=== PATIENT | female | born 1945 | race Caucasian/White ===

== ENCOUNTER 2021-07-05 09:06 | Outpatient (REF) | payer MEDICARE, SELFPAY ==
--- NOTE | ~2021-07-05 | CT_ITS ---
EXAMINATION: CT CHEST WITHOUT CONTRAST CLINICAL INFORMATION: Interstitial lung disease. COMPARISON: Previous chest CT scans April 2019 and March 2020. TECHNIQUE: Multidetector volumetric CT imaging of the chest was done. Axial MIP volume rendering provided. Sagittal and coronal reformatted images were obtained. This CT examination was performed using dose optimization techniques as appropriate, variously including the following: *Automated exposure control. *Adjustment of mA and/or kV according to patient size (this includes techniques or standardized protocols for targeted exams where dose is matched to indication/reason for exam; i.e. extremities or head). *Use of iterative reconstruction technique. DLP: 81 mGy-cm FINDINGS: LUNGS: The lungs are well inflated. There is mild diffuse cylindrical bronchiectasis. There is bronchial wall thickening, bronchial soft tissue opacification/mucus plugging and peribronchial nodules and nodular opacities seen in the bilateral lower lobes, right middle lobe, inferior segment of the lingula and anterior and posterior segment of the right upper lobe. This is greatest in the right middle lobe and left lower lobe. This does not appear appreciably changed from March 2020. Largest pulmonary nodule measures 0.8 x 1.2 cm in the right lower lobe, axial image 147 series 6, and is unchanged. Previously identified irregularly-shaped larger area of consolidation in the posterior costophrenic sulcus of the right lower lobe on March 2020 exam appear improved. MEDIASTINUM: The heart does not appear enlarged. There is very mild coronary artery calcification. There is a trace stable pericardial effusion. There are small mediastinal lymph nodes that are stable. The thoracic aorta is normal in caliber. PLEURA: There is mild biapical pleural calcification. There is no pleural effusion. AXILLA: No lymphadenopathy. UPPER ABDOMEN: Unremarkable. OSSEOUS STRUCTURES: There are mild degenerative changes of the spine. CT/CT chest wo con IMPRESSION: Stable bronchiectasis, bronchial wall thickening and mucus plugging from previous exam. There is interval resolution of the right lower lobe consolidation compared to March 2020 exam. Fleischner guidelines were followed.
== END 2021-07-05 09:07 | disposition home or self-care (01) ==
LOC: HO.CT 09:06
PROVIDERS: Visit Provider Internal Medicine
DX: J84.9 Interstitial pulmonary disease, unspecified (principal)
CPT/HCPCS: 71250

== ENCOUNTER 2024-12-06 13:33 | Outpatient (AMB) | payer MEDICARE, SELFPAY ==
--- NOTE | 2024-12-06 13:52 | A.OFFVIS_ITS ---
Vital Signs 3 12/06/24 14:07 12/06/24 14:13 Pulse 81 81 Pulse Source Pulse Oximeter Pulse Oximeter Pulse Oximetry (%) 96 96 Oxygen Delivery Method Room Air Room Air Intake Visit Reasons: [place] Pod/Foot Ulcer Allergies azithromycin Allergy (Unknown, Verified 12/06/24 14:09) Unknown Penicillins Allergy (Unknown, Verified 12/06/24 14:09) Unknown biaxin Allergy (Unknown, Uncoded 12/06/24 14:09) uknown erythromy Allergy (Unknown, Uncoded 12/06/24 14:09) Unknown HPI Comments Details: She is referral for right second toe redness. She has nonhealing ulcer and Pseudomonas on 09/17/2024. She is seeing [facility]. [facility] Medical History (Updated 12/06/24 @ 14:47 by Caroline Linares MD) Foot ulcer Review of Systems Const All systems reviewed & are unremarkable except as noted in HPI and below Physical Exam Vital Signs: Last Vital Signs Pulse 81 12/06/24 14:13 Pulse Ox 96 12/06/24 14:13 Oxygen Delivery Method Room Air 12/06/24 14:13 Const Other: General: cooperative Orientation/consciousness: patient oriented x3 HEENT Head: Yes normal to inspection Mouth: Normal oral and palatal mucosa present Eyes General: appearance normal, both eyes and all related structures Pupils: Equal, round and reactive pupils present Resp Effort & Inspection: normal respiratory effort Cardio Rate: regular rate Rhythm: regular rhythm GI Palpation (GI): Soft to palpation and nontender General: Yes no CVA tenderness Back/Spine/Pelvis Back: no CVA tenderness Skin General skin exam: no rashes or lesions noted Neuro General: patient oriented x3 Cranial nerves: Yes CN's II-XII intact bilaterally and Yes Equal, round and reactive pupils present Extrem General: Yes normal to inspection Psych Appearance: grossly normal Assessment & Plan Assessment & Plan (1) Foot ulcer: Comment: She has had Pseudomonas Code(s): L97.509 - Non-pressure chronic ulcer of other part of unspecified foot with unspecified severity Category: Medical Plan Po Levaquin if able,probably four weeks Check XR again evaluate OM. See if needed. Coding Level of Care Code New Pt Level 3 (82839) Diagnoses Foot ulcer L97.509
[2024-12-06 14:07] VITALS: PULSE 81; O2SAT 96
[2024-12-06 14:13] VITALS: PULSE 81; O2SAT 96
--- OUTSIDE RECORDS SUMMARY | 2024-12-06 14:52 | XMS_ITS ---
Author Organization [facility] Address [address] [place] [id number] Care Team Providers Care Air Quality Chemist Name Role Phone Raymond Fernandes Primary Care Provider Vandana Gill [phone] REASON FOR VISIT auto immune dx Encounters Encounter Location Date Provider Diagnosis [address] [id number] 11/24/2024 Vandana Ramirez Plan Of Treatment Next Appt Details Provider Name:Vandana dykes, 12/15/2024 12:00:00 PM, [address] [place] [address], [phone], Provider Name:Vandana dykes, 12/26/2024 03:45:00 PM, [address] [place] [address], [phone], Progress Notes * Tomasa JE[birth year]DOB:[birth year] (78 yo F)Acc No.[id number]:11/24/2024 Patient:?Tomasa JEWELL :1945???Age:78 Y???Sex:Female Address:[facility] [address] * true * Date:? Generated for Printi ng/Faxing/eTransmitting on:?12/06/2024 02:52 PM EDT
--- OUTSIDE RECORDS SUMMARY | 2024-12-06 14:52 | XMS_ITS | Data Portability ---
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 Garrett for osteoporosis, status post reclast once 06/04/16. 08/17/19 DXA revealed L2:4 t-score -0.5, left femoral neck t-score -2.9, z-score -0.6, (vs. t-score -2.7 and z-score-0.6 in 2017, decrease in bmd of 4%), mean total t-score -2.9 (vs. -2.8 in 2017), distal 1/3 radius t-score -2.4, no change from 2017. Bone density testing shows osteoporosis and stable bone density since 2017. 03/01/16 urine calcium 125mg/24h, urine cr 1.1g/24h, 01/24/16 creatinine 1.1mg/dL, glc 70mg/dL, calcium 8.8mg/dL, phos 2.7mg/dL, mg 2.1mg/dL, tsh 0.8, pth 27pg/mL, 25-oh vitamin d 87ng/mL, borrelia burgdorferi ab 0.2 (ref <0.9). 01/24/16 radiograph cervical thoracic and lumbar-spine noted reverse lordosis and degenerative changes (osteophyte, narrowed disc space, sponylolisthesis of L3), but no fracture. I spent a total of 13 minutes with the patient, over half of which was spent counseling the patient on treatment and monitoring of osteoporosis. We reviewed the option of reclast, and she would like to remain off for now. I suggest repeating a bmd test in 2y and will touch base in a year. Patient agreed to this visit via phone or secure telehealth platform due to the COVID -19 pandemic. Patient understands this is a scheduled visit and the usual procedures with regard to billing and confidentiality apply. Patient was notified that the provider location is home Patient location: home During the visit the patient? s medical history and medical record were reviewed. The patient was notified to call our office for worsening or urgent symptoms. [email or web address] Not available 01/04/2020 10:05:10 01/23/2021 01/23/2021 75yo woman, with a history of GERD, improved by tums, hypertension, bronchiectasis, underweight, early menopause, perhaps age 39 years, on estrogen and progesterone until age 59 years, and osteoporosis kindly referred by Dr. Garrett for osteoporosis, status post reclast once 06/04/16. 08/17/19 DXA revealed L2:4 t-score -0.5, left femoral neck t-score -2.9, z-score -0.6, (vs. t-score -2.7 and z-score-0.6 in 2017, decrease in bmd of 4%), mean total t-score -2.9 (vs. -2.8 in 2017), distal 1/3 radius t-score -2.4, no change from 2017. Bone density testing shows osteoporosis and stable bone density since 2017. 12/06/20 ast 39 (ref 0, 37), 25oh vit d 56, ca 9.1, cr 0.8, 03/01/16 urine calcium 125mg/24h, urine cr 1.1g/24h, 01/24/16 creatinine 1.1mg/dL, glc 70mg/dL, calcium 8.8mg/dL, phos 2.7mg/dL, mg 2.1mg/dL, tsh 0.8, pth 27pg/mL, 25-oh vitamin d 87ng/mL, borrelia burgdorferi ab 0.2 (ref <0.9). 01/24/16 radiograph cervical thoracic and lumbar-spine noted reverse lordosis and degenerative changes (osteophyte, narrowed disc space, sponylolisthesis of L3), but no fracture. Mildly high liver test. Blood count is overall normal. Calcium and kidney function are normal. It is challenging to compare bone density over of time in reference to the reclast treatment because past treatment of reclast was given 1 y after DXA baseline. She had put off additional reclast in the past due to concerns about being present for her . We discussed options, and she would like to reassess DXA in 08/23 and consider a repeat treatment thereafter. [email or web address] Not available 01/23/2021 10:47:45 08/28/2021 08/28/2021 75yo woman, with a history of dysphagia with solid food, vasculitis (granulomatosis with polyangiitis), on prednisone since 07/22, GERD, improved by tums, hypertension, bronchiectasis, underweight, early menopause, perhaps age 39 years, on estrogen and progesterone until age 59 years, and osteoporosis kindly referred by Dr. Garrett for osteoporosis, status post reclast once 06/04/16. 08/17/19 DXA revealed L2:4 t-score -0.5, left femoral neck t-score -2.9, z-score -0.6, (vs. t-score -2.7 and z-score-0.6 in 2017, decrease in bmd of 4%), mean total t-score -2.9 (vs. -2.8 in 2017), distal 1/3 radius t-score -2.4, no change from 2017. Bone density testing shows osteoporosis and stable bone density since 2017. 08/20/21 cr 0.7, ca 9.6, albumin 4.1, 12/06/20 ast 39 (ref 0, 37), 25oh vit d 56, ca 9.1, cr 0.8, 03/01/16 urine calcium 125mg/24h, urine cr 1.1g/24h, 01/24/16 creatinine 1.1mg/dL, glc 70mg/dL, calcium 8.8mg/dL, phos 2.7mg/dL, mg 2.1mg/dL, tsh 0.8, pth 27pg/mL, 25-oh vitamin d 87ng/mL, borrelia burgdorferi ab 0.2 (ref <0.9). 01/24/16 radiograph cervical thoracic and lumbar-spine noted reverse lordosis and degenerative changes (osteophyte, narrowed disc space, sponylolisthesis of L3), but no fracture. Mildly high liver test. Blood count is overall normal. Calcium and kidney function are normal. Due to dysphagia, GERD, use of prednisone, and past tolerability of reclast, I suggest restarting reclast. We will get repeat labs and try to get DXA before repeating reclast if possible. [email or web address] Not available 08/28/2021 10:54:42 12/03/2022 12/03/2022 76yo woman, with a history of dysphagia with solid food, vasculitis (granulomatosis with polyangiitis), on prednisone since 07/22, GERD, improved by tums, hypertension, bronchiectasis, underweight, early menopause, perhaps age 39 years, on estrogen and progesterone until age 59 years, and osteoporosis kindly referred by Dr. Amezcua for osteoporosis, status post reclast once 06/04/16 and 09/30/21. 11/17/22 L1:4 t-score -1.7, significant decrease of lumbar spine bmd 5.1%, left femoral neck t-score -3, left total hip t-score -3.2, which is consistent with worsening osteoporosis. 08/17/19 DXA revealed L2:4 t-score -0.5, left femoral neck t-score -2.9, z-score -0.6, (vs. t-score -2.7 and z-score-0.6 in 2017, decrease in bmd of 4%), mean total t-score -2.9 (vs. -2.8 in 2017), distal 1/3 radius t-score -2.4, no change from 2017. Bone density testing shows osteoporosis and stable bone density since 2017. 10/15/22 cr 0.8, ca 9.2, alk phos 72, 08/29/21 pth 44, esr 10, tsh 1.6, cr 0.8, ca 9.1, crp 12.3, 25oh vit d 64, 08/20/21 cr 0.7, ca 9.6, albumin 4.1, 12/06/20 ast 39 (ref 0, 37), 25oh vit d 56, ca 9.1, cr 0.8, 03/01/16 urine calcium 125mg/24h, urine cr 1.1g/24h, 01/24/16 creatinine 1.1mg/dL, glc 70mg/dL, calcium 8.8mg/dL, phos 2.7mg/dL, mg 2.1mg/dL, tsh 0.8, pth 27pg/mL, 25-oh vitamin d 87ng/mL, borrelia burgdorferi ab 0.2 (ref <0.9). 01/24/16 radiograph cervical thoracic and lumbar-spine noted reverse lordosis and degenerative changes (osteophyte, narrowed disc space, sponylolisthesis of L3), but no fracture. High white blood cells may be due to inflammation. High vitamin d. I suggest reducing vitamin d supplementation from 1000 to 400units by mouth once daily. Calcium and kidney function is normal. She is now on prednisone 1mg daily. Unfortunately, zoledronic acid recently associated with worsening osteoporosis. Due to dysphagia, GERD, use of prednisone, I would favor prolia or tymlos. She declines another medicine at this time due to polypharmacy and concern about AE of these meds. She will review this with you in the future and return to see me as needed. [email or web address] Not available 12/03/2022 10:58:21 Plan of Treatment Reminders Order Date Submit Date Provider Last Modified By Organization Details Last Modified Time Details Appointments None recorded. Lab vitamin D, 25-hydroxy, total, serum 2021 022 [facility], [address] [place] [address] [place], [address], 2 14:25:17 renal function panel, serum 2021 022 [facility], [address] [place] [address] [place], [address], 3 16:05:49 PTH (parathyroi d hormone), intact, serum or plasma 2021 022 [facility], [address] [place] [address] [place], [address], 14:08:31 TSH, serum or plasma 2021 [facility], [address] [place], [address], 13:51:14 Referral None recorded. Procedures None recorded. Surgeries None recorded. Imaging DEXA 2021 [email or web address] [facility], [address] [place], [address], 12:03:17 bone density - due [id number] scharette [address] [place] [address] (Imaging), [address] [place], [address], 14:06:16 Medication Orders zoledronic acid 5 mg/100 mL in mannitol 5 %-water intravenous piggybck 2021 cosme [id number], [address] [facility], [place], [address], 15:20:13 Reclast 5 mg/100 mL intravenous piggyback 2021 ITZEL [facility] [id number] ([facility]), [address], [place], [id number], 10:48:57 Patient TargetsNo targets recorded. Patient Instructions Encounter Date Encounter Id Patient Instructions Last Modified By Organization Details Last Modified Time 01/04/2020 [id number] -labs 1y with follow up thereafter [address]y with Dr[address] Ruben aguiar Not available 01/04/2020 10:01:44 01/23/2021 [id number] -follow up August or September 2021 to review bone density cosme Not available 01/23/2021 10:44:40 Reason for Referral None Reported. Results Created Date Observation Date Name Description Value Unit Range Abnormal Flag Note LastModifiedBy Organization Detail LastModifiedTime 12/07/19 21 12/06/2020 CBC w/ auto diff WBC 6.99 K/uL 4.00-1 1.00 Not Available [facility] (Outpatient) [address] [place], [address], 12/06/2020 13:35:57 12/07/19 21 12/06/2020 CBC w/ auto diff RBC 4.07 M/uL 3.72-5 .30 Not Available [facility] (Outpatient) [address] [place], [address], 12/06/2020 13:35:57 12/07/19 21 12/06/2020 CBC w/ auto diff HGB 12.6 g/dL 11.4-1 5.9 Not Available [facility] (Outpatient) [address] [place], [address], 12/06/2020 13:35:57 12/07/19 21 12/06/2020 CBC w/ auto diff HCT 38.9 % 34.2-4 6.8 Not Available [facility] (Outpatient) [address] [place], [address], 12/06/2020 13:35:57 12/07/19 21 12/06/2020 CBC w/ auto diff plt 259 K/uL 140-43 0 Not Available [facility] (Outpatient) [address] [place], [address], 12/06/2020 13:35:57 12/07/19 21 12/06/2020 CBC w/ auto diff MCV 95.6 fL 78.0-9 7.0 Not Available [facility] (Outpatient) [address] [place], [address], 12/06/2020 13:35:57 12/07/19 21 12/06/2020 CBC w/ auto diff MCH 31.0 pg 25.0-3 3.0 Not Available [facility] (Outpatient) [address] [place] [address], [address], 12/06/2020 13:35:57 12/07/19 21 12/06/2020 CBC w/ auto diff MCHC 32.4 g/dL 32.0-3 6.0 Not Available [facility] (Outpatient) [address] [place] [address], [address], 12/06/2020 13:35:57 12/07/19 21 12/06/2020 CBC w/ auto diff RDW 12.6 % 11.0-1 6.0 Not Available [facility] (Outpatient) [address] [place] [address], [address], 12/06/2020 13:35:57 12/07/19 21 12/06/2020 CBC w/ auto diff MPV 9.7 fL 8.4-12 .8 Not Available [facility] (Outpatient) [address] [place] [address], [address], 12/06/2020 13:35:57 12/07/19 21 12/06/2020 CBC w/ auto diff NRBC 0.00 /100_ WBCs 0 Not Available [facility] (Outpatient) [address] [place] [address], [address], 12/06/2020 13:35:57 12/07/19 21 12/06/2020 CBC w/ auto diff absolute NRBC 0.00 K/uL 0 Not Available [facility] (Outpatient) [address] [place] [address], [address], 12/06/2020 13:35:57 12/07/19 21 12/06/2020 CBC w/ auto diff diff method Auto Not Available [facility] (Outpatient) [address] [place] [address], [address], 12/06/2020 13:35:57 12/07/19 21 12/06/2020 CBC w/ auto diff neuts 69.2 % 43.0-7 5.0 Not Available [facility] (Outpatient) [address] [place], [address], 12/06/2020 13:35:57 12/07/19 21 12/06/2020 CBC w/ auto diff lymphs 16.5 % 18.2-4 7.4 low Not Available [facility] (Outpatient) [address] [place], [address], 12/06/2020 13:35:57 12/07/19 21 12/06/2020 CBC w/ auto diff monos 9.6 % 4.00-1 1.00 Not Available [facility] (Outpatient) [address] [place], [address], 12/06/2020 13:35:57 12/07/19 21 12/06/2020 CBC w/ auto diff eos 3.3 % 0.0-8. 0 Not Available [facility] (Outpatient) [address] [place], [address], 12/06/2020 13:35:57 12/07/19 21 12/06/2020 CBC w/ auto diff basos 1.1 % 0.0-2. 0 Not Available [facility] (Outpatient) [address] [place], [address], 12/06/2020 13:35:57 12/07/19 21 12/06/2020 CBC w/ auto diff granulocytes , immature (%) 0.3 % 0.0-0. 9 Not Available [facility] (Outpatient) [address] [place], [address], 12/06/2020 13:35:57 12/07/19 21 12/06/2020 CBC w/ auto diff absolute neuts 4.84 K/uL 1.80-7 .70 Not Available [facility] (Outpatient) [address] [place], [address], 12/06/2020 13:35:57 12/07/19 21 12/06/2020 CBC w/ auto diff absolute lymphs 1.15 K/uL 1.00-3 .10 Not Available [facility] (Outpatient) [address] [place], [address], 12/06/2020 13:35:57 12/07/19 21 12/06/2020 CBC w/ auto diff absolute monos 0.67 K/uL 0.20-0 .80 Not Available [facility] (Outpatient) [address] [place], [address], 12/06/2020 13:35:57 12/07/19 21 12/06/2020 CBC w/ auto diff absolute eos 0.23 K/uL 0.00-0 .80 Not Available [facility] (Outpatient) [address] [place], [address], 12/06/2020 13:35:57 12/07/19 21 12/06/2020 CBC w/ auto diff absolute basos 0.08 K/uL 0.00-0 .09 Not Available [facility] (Outpatient) [address] [place] [address], [address], 12/06/2020 13:35:57 12/07/19 21 12/06/2020 CBC w/ auto diff granulocytes , immature 0.02 K/uL 0.00-0 .05 Not Available [facility] (Outpatient) [address] [place] [address], [address], 12/06/2020 13:35:57 12/07/19 21 12/06/2020 vitam in D, 25-hy droxy , total , serum 25 oh vit D (total) 56 NG/mL -60 Not Available [facility] (Outpatient) [address] [place], [address], 12/06/2020 14:14:14 12/07/19 21 12/06/2020 CMP, serum or plasm a sodium 140 mmol/ L 133-14 6 Not Available [facility] (Outpatient) [address] [place], [address], 12/06/2020 14:44:25 12/07/19 21 12/06/2020 CMP, serum or plasm a potassium 4.0 mmol/ L 3.3-5. 1 Not Available [facility] (Outpatient) [address] [place], [address], 12/06/2020 14:44:25 12/07/19 21 12/06/2020 CMP, serum or plasm a chloride 103 mmol/ L 96-108 Not Available [facility] (Outpatient) [address] [place], [address], 12/06/2020 14:44:25 12/07/19 21 12/06/2020 CMP, serum or plasm a CO2 28 mmol/ L 21-35 Not Available [facility] (Outpatient) [address] [place], [address], 12/06/2020 14:44:25 12/07/19 21 12/06/2020 CMP, serum or plasm a BUN 16 mg/dL 6-19 Not Available [facility] (Outpatient) [address] [place], [address], 12/06/2020 14:44:25 12/07/19 21 12/06/2020 CMP, serum or plasm a creatinine 0.80 mg/dL 0.5-1. 5 Not Available [facility] (Outpatient) [address] [place], [address], 12/06/2020 14:44:25 12/07/19 21 12/06/2020 CMP, serum or plasm a glucose 83 mg/dL 70-99 Not Available [facility] (Outpatient) [address] [place], [address], 12/06/2020 14:44:25 12/07/19 21 12/06/2020 CMP, serum or plasm a albumin 3.5 g/dL 3.9-4. 8 low Not Available [facility] (Outpatient) [address] [place] [address], [address], 12/06/2020 14:44:25 12/07/19 21 12/06/2020 CMP, serum or plasm a total protein 6.7 g/dL 6.5-8. 0 Not Available [facility] (Outpatient) [address] [place], [address], 12/06/2020 14:44:25 12/07/19 21 12/06/2020 CMP, serum or plasm a calcium 9.1 mg/dL 8.4-10 .3 Not Available [facility] (Outpatient) [address] [place], [address], 12/06/2020 14:44:25 12/07/19 21 12/06/2020 CMP, serum or plasm a alkaline phosphatase 74 U/L 39-117 Not Available [facility] (Outpatient) [address] [place], [address], 12/06/2020 14:44:25 12/07/19 21 12/06/2020 CMP, serum or plasm a total bilirubin 0.6 mg/dL 0.0-1. 2 Not Available [facility] (Outpatient) [address] [place], [address], 12/06/2020 14:44:25 12/07/19 21 12/06/2020 CMP, serum or plasm a AST 39 U/L 0-37 high Not Available [facility] (Outpatient) [address] [place], [address], 12/06/2020 14:44:25 12/07/19 21 12/06/2020 CMP, serum or plasm a ALT 25 U/L 0-40 Not Available [facility] (Outpatient) [address] [place], [address], 12/06/2020 14:44:25 12/07/19 21 12/06/2020 CMP, serum or plasm a globulin 3.2 g/dL 1-4.8 Not Available [facility] (Outpatient) [address] [place], [address], 12/06/2020 14:44:25 12/07/19 21 12/06/2020 CMP, serum or plasm a eGFR 72 mL/mi n/1.7 3m2 >59 Estim ated glome rular filtr ation rate calcu lated using the CKD-E PI equat ion. Not Available [facility] (Outpatient) [address] [place], [address], 12/06/2020 14:44:25 12/07/19 21 12/06/2020 CMP, serum or plasm a anion gap 13 mmol/ L 10-20 Not Available [facility] (Outpatient) [address] [place], [address], 12/06/2020 14:44:25 08/29/19 22 08/29/2021 CBC AND DIFFE RENTI AL WBC 13.44 K/uL 4.00-1 1.00 high Not Available [facility] (Outpatient) [address] [place], [address], 08/29/2021 13:30:13 08/29/19 22 08/29/2021 CBC AND DIFFE RENTI AL RBC 4.41 M/uL 3.72-5 .30 Not Available [facility] (Outpatient) [address] [place], [address], 08/29/2021 13:30:13 08/29/19 22 08/29/2021 CBC AND DIFFE RENTI AL HGB 13.4 g/dL 11.4-1 5.9 Not Available [facility] (Outpatient) [address] [place], [address], 08/29/2021 13:30:13 08/29/19 22 08/29/2021 CBC AND DIFFE RENTI AL HCT 41.4 % 34.2-4 6.8 Not Available [facility] (Outpatient) [address] [place], [address], 08/29/2021 13:30:13 08/29/19 22 08/29/2021 CBC AND DIFFE RENTI AL plt 420 K/uL 140-43 0 Not Available [facility] (Outpatient) [address] [place], [address], 08/29/2021 13:30:13 08/29/19 22 08/29/2021 CBC AND DIFFE RENTI AL MCV 93.9 fL 78.0-9 7.0 Not Available [facility] (Outpatient) [address] [place], [address], 08/29/2021 13:30:13 08/29/19 22 08/29/2021 CBC AND DIFFE RENTI AL MCH 30.4 pg 25.0-3 3.0 Not Available [facility] (Outpatient) [address] [place], [address], 08/29/2021 13:30:13 08/29/19 22 08/29/2021 CBC AND DIFFE RENTI AL MCHC 32.4 g/dL 32.0-3 6.0 Not Available [facility] (Outpatient) [address] [place], [address], 08/29/2021 13:30:13 08/29/19 22 08/29/2021 CBC AND DIFFE RENTI AL RDW 17.7 % 11.0-1 6.0 high Not Available [facility] (Outpatient) [address] [place], [address], 08/29/2021 13:30:13 08/29/19 22 08/29/2021 CBC AND DIFFE RENTI AL MPV 9.0 fL 8.4-12 .8 Not Available [facility] (Outpatient) [address] [place], [address], 08/29/2021 13:30:13 08/29/19 22 08/29/2021 CBC AND DIFFE RENTI AL NRBC 0.00 /100_ WBCs 0 Not Available [facility] (Outpatient) [address] [place], [address], 08/29/2021 13:30:13 08/29/19 22 08/29/2021 CBC AND DIFFE RENTI AL absolute NRBC 0.00 K/uL 0 Not Available [facility] (Outpatient) [address] [place], [address], 08/29/2021 13:30:13 08/29/19 22 08/29/2021 CBC AND DIFFE RENTI AL diff method AUTO Not Available [facility] (Outpatient) [address] [place], [address], 08/29/2021 13:30:13 08/29/19 22 08/29/2021 CBC AND DIFFE RENTI AL neuts 78.6 % 43.0-7 5.0 high Not Available [facility] (Outpatient) [address] [place], [address], 08/29/2021 13:30:13 08/29/19 22 08/29/2021 CBC AND DIFFE RENTI AL lymphs 9.8 % 18.2-4 7.4 low Not Available [facility] (Outpatient) [address] [place], [address], 08/29/2021 13:30:13 08/29/19 22 08/29/2021 CBC AND DIFFE RENTI AL monos 8.3 % 4.00-1 1.00 Not Available [facility] (Outpatient) [address] [place], [address], 08/29/2021 13:30:13 08/29/19 22 08/29/2021 CBC AND DIFFE RENTI AL eos 1.6 % 0.0-8. 0 Not Available [facility] (Outpatient) [address] [place], [address], 08/29/2021 13:30:13 08/29/19 22 08/29/2021 CBC AND DIFFE RENTI AL basos 0.7 % 0.0-2. 0 Not Available [facility] (Outpatient) [address] [place], [address], 08/29/2021 13:30:13 08/29/19 22 08/29/2021 CBC AND DIFFE RENTI AL granulocytes , immature (%) 1.0 % 0.0-0. 9 high Not Available [facility] (Outpatient) [address] [place], [address], 08/29/2021 13:30:13 08/29/19 22 08/29/2021 CBC AND DIFFE RENTI AL absolute neuts 10.57 K/uL 1.80-7 .70 high Not Available [facility] (Outpatient) [address] [place] [address], [address], 08/29/2021 13:30:13 08/29/19 22 08/29/2021 CBC AND DIFFE RENTI AL absolute lymphs 1.32 K/uL 1.00-3 .10 Not Available [facility] (Outpatient) [address] [place] [address], [address], 08/29/2021 13:30:13 08/29/19 22 08/29/2021 CBC AND DIFFE RENTI AL absolute monos 1.11 K/uL 0.20-0 .80 high Not Available [facility] (Outpatient) [address] [place] [address], [address], 08/29/2021 13:30:13 08/29/19 22 08/29/2021 CBC AND DIFFE RENTI AL absolute eos 0.21 K/uL 0.00-0 .80 Not Available [facility] (Outpatient) [address] [place], [address], 08/29/2021 13:30:13 08/29/19 22 08/29/2021 CBC AND DIFFE RENTI AL absolute basos 0.10 K/uL 0.00-0 .09 high Not Available [facility] (Outpatient) [address] [place], [address], 08/29/2021 13:30:13 08/29/19 22 08/29/2021 CBC AND DIFFE RENTI AL granulocytes , immature 0.13 K/uL 0.00-0 .05 high Not Available [facility] (Outpatient) [address] [place], [address], 08/29/2021 13:30:13 08/29/19 22 08/29/2021 COMPR EHENS LAM METAB OLIC PANEL sodium 136 mmol/ L 133-14 6 Not Available [facility] (Outpatient) [address] [place], [address], 08/29/2021 13:51:10 08/29/19 22 08/29/2021 COMPR EHENS LAM METAB OLIC PANEL potassium 3.7 mmol/ L 3.3-5. 1 Not Available [facility] (Outpatient) [address] [place], [address], 08/29/2021 13:51:10 08/29/19 22 08/29/2021 COMPR EHENS LAM METAB OLIC PANEL chloride 96 mmol/ L 96-108 Not Available [facility] (Outpatient) [address] [place], [address], 08/29/2021 13:51:10 08/29/19 22 08/29/2021 COMPR EHENS LAM METAB OLIC PANEL CO2 30 mmol/ L 21-35 Not Available [facility] (Outpatient) [address] [place], [address], 08/29/2021 13:51:10 08/29/19 22 08/29/2021 COMPR EHENS LAM METAB OLIC PANEL BUN 23 mg/dL 6-19 high Not Available [facility] (Outpatient) [address] [place], [address], 08/29/2021 13:51:10 08/29/19 22 08/29/2021 COMPR EHENS LAM METAB OLIC PANEL creatinine 0.80 mg/dL 0.5-1. 5 Not Available [facility] (Outpatient) [address] [place], [address], 08/29/2021 13:51:10 08/29/19 22 08/29/2021 COMPR EHENS LAM METAB OLIC PANEL glucose 87 mg/dL 70-99 Not Available [facility] (Outpatient) [address] [place], [address], 08/29/2021 13:51:10 08/29/19 22 08/29/2021 COMPR EHENS LAM METAB OLIC PANEL albumin 4.1 g/dL 3.9-4. 8 Not Available [facility] (Outpatient) [address] [place], [address], 08/29/2021 13:51:10 08/29/19 22 08/29/2021 COMPR EHENS LAM METAB OLIC PANEL total protein 6.9 g/dL 6.5-8. 0 Not Available [facility] (Outpatient) [address] [place], [address], 08/29/2021 13:51:10 08/29/19 22 08/29/2021 COMPR EHENS LAM METAB OLIC PANEL calcium 9.1 mg/dL 8.4-10 .3 Not Available [facility] (Outpatient) [address] [place], [address], 08/29/2021 13:51:10 08/29/19 22 08/29/2021 COMPR EHENS LAM METAB OLIC PANEL alkaline phosphatase 81 U/L 39-117 Not Available [facility] (Outpatient) [address] [place], [address], 08/29/2021 13:51:10 08/29/19 22 08/29/2021 COMPR EHENS LAM METAB OLIC PANEL total bilirubin 0.6 mg/dL 0.0-1. 2 Not Available [facility] (Outpatient) [address] [place], [address], 08/29/2021 13:51:10 08/29/19 22 08/29/2021 COMPR EHENS LAM METAB OLIC PANEL AST 32 U/L 0-37 Not Available [facility] (Outpatient) [address] [place], [address], 08/29/2021 13:51:10 08/29/19 22 08/29/2021 COMPR EHENS LAM METAB OLIC PANEL ALT 26 U/L 0-40 Not Available [facility] (Outpatient) [address] [place], [address], 08/29/2021 13:51:10 08/29/19 22 08/29/2021 COMPR EHENS LAM METAB OLIC PANEL globulin 2.8 g/dL 1-4.8 Not Available [facility] (Outpatient) [address] [place] [address], [id number], 08/29/2021 13:51:10 08/29/19 22 08/29/2021 COMPR EHENS LAM METAB OLIC PANEL eGFR 76 mL/mi n/1.7 3m2 >59 Estim ated glome rular filtr ation rate calcu lated using the CKD-E PI refit equat ion. Not Available [facility] (Outpatient) [address] [place], [address], 08/29/2021 13:51:10 08/29/19 22 08/29/2021 COMPR EHENS LAM METAB OLIC PANEL anion gap 14 mmol/ L 10-20 Not Available [facility] (Outpatient) [address] [place], [address], 08/29/2021 13:51:10 08/29/19 22 08/29/2021 C-JAZMINE CTIVE PROTE IN C reactive protein 12.3 mg/L 0.0-4. 0 high Not Available [facility] (Outpatient) [address] [place], [address], 08/29/2021 13:51:11 08/29/19 22 08/29/2021 PHOSP HORUS phosphorus 3.7 mg/dL 2.7-4. 5 Not Available [facility] (Outpatient) [address] [place], [address], 08/29/2021 13:51:13 08/29/19 22 08/29/2021 TSH TSH 1.57 uIU/m L 0.27-4 .20 Not Available [facility] (Outpatient) [address] [place], [address], 08/29/2021 13:51:14 08/29/19 22 08/29/2021 SEDIM ENTAT ION RATE (ESR) ESR 10 mm/h 0-30 Not Available [facility] (Outpatient) [address] [place], [address], 08/29/2021 14:08:05 08/29/19 22 08/29/2021 CALVIN WYMAN (PTH) parathyroid hormone 44 pg/mL 15-65 Not Available [facility] (Outpatient) [address] [place], [address], 08/29/2021 14:08:31 08/29/19 22 08/29/2021 LIPID PANEL HDL 95 mg/dL Inter preta tion <40 mg/dL : Low HDL harrison stero l (nacho r risk facto r for CHD) Great er than or equal to 60 mg/dL : High HDL harrison stero l ( neg ative risk facto r for CHD) HDL - harrison stero l is affec micaela by a tejae r of facto rs, e.g. clau cardenas, ricardo hughes, hormo brandon, sex and age. Not Available [facility] (Outpatient) [address] [place], [address], 08/29/2021 14:09:08 08/29/19 22 08/29/2021 LIPID PANEL cholesterol 182 mg/dL 0-240 Not Available [facility] (Outpatient) [address] [place], [address], 08/29/2021 14:09:08 08/29/19 22 08/29/2021 LIPID PANEL triglyceride s 86 mg/dL 30-160 Not Available [facility] (Outpatient) [address] [place], [address], 08/29/2021 14:09:08 08/29/19 22 08/29/2021 LIPID PANEL LDL 70 mg/dL 50-129 LDL level s in terms of risk for coron arthur heart disea se: <100 mg/dL : Optim al 100-1 29 mg/dL : Near or above optim al 130-1 59 mg/dL : Borde rline high 160-1 89 mg/dL : High >190 mg/dL : Very High Not Available [facility] (Outpatient) [address] [place], [address], 08/29/2021 14:09:08 08/29/19 22 08/29/2021 LIPID PANEL cardiac risk ratio 1.9 3.3-4. 4 low Not Available [facility] (Outpatient) [address] [place], [address], 08/29/2021 14:09:08 08/29/19 22 08/29/2021 25-OH VITAM IN D 25 oh vit D (total) 64 NG/mL 30-60 high Not Available [facility] (Outpatient) [address] [place], [address], 08/29/2021 14:25:17 11/17/19 22 11/12/2021 bone densi ty Dual-E nergy X-ray Absorp tiomet ry (DXA) scan perfor med on 2. Impres deya: Based on BMD, diagno sis is consis tent with osteop orosis . Treatm ent Recomm endati ons: ?Optim ize vitami n D, calciu m, and weight -beari ng and muscle -stren gtheni ng exerci se. This patien t has osteop orosis . Treatm ent option s should be consid ered. Follow -up DXA: Consid er repeat ing this study in one to two years or as clinic ileana hinojosa. Indica tion(s ): Caucas nolan, premat ure menopa use, low body weight Clinic al Histor y: osteop orosis (remot e Reclas t therap y), height loss, fragil ity fractu re Techni segundo Qualit y: The techni segundo qualit y of the study was good. The L1 region was exclud ed due to artifa ct. Result s: Lumbar Spine The BMD measur ed in the L2-L4 region is 1.081 g/cm2. T-scor e = -1.0. Femora l Neck The BMD measur ed at the left femora l neck is 0.627 g/cm2. T-scor e = -3.0. Total Hip The BMD measur ed at the total left proxim al femur is 0.617 g/cm2. T-scor e = -3.1. 1/3 Radius The BMD measur ed at the left one-th ird radius is 0.602 g/cm2. T-scor e = -3.1. Interv al Change : This examin ation is compar ed to the techni debbie ma prior study from 0. In the interi m, there has been a signif icant decrea se of 0.053 g/cm2, or 4.7 %, at the lumbar spine. At this facili ty, the least signif icant change in BMD with 95% confid ence is 0.033 g/cm2 at the L1-L4 spine, and 0.032 g/cm2 at the total hip. Fractu re Risk: The estima micaela 10-yea r risk for a major osteop orotic fractu re is 24 % and for a hip fractu re 9.8 %. This fractu re risk estima te was calcul ated using FRAX versio n 4.0 and Caucas nolan race, postme nopaus e, second arthur osteop orosis , and fragil ity fractu re as additi onal clinic al risk factor s for fractu re. This scan was perfor med using the [employer] Primo 10 densit ometer at [facility] , [address] [place]. Read by: Lilia Cardenas on, MS, BILL PEDDLER-BC , CCD Nalini Peña nolan: Samia marin [facility] (Imaging) [address], [place], [address], 11/17/2021 14:28:27 12/02/19 23 11/17/2022 bone densi ty Dual-E nergy X-ray Absorp tiomet ry (DXA) scan perfor med on 3. Impres deya: Based on BMD, diagno sis is consis tent with osteop orosis . Treatm ent Recomm endati ons: ?Optim ize vitami n D, calciu m, and weight -beari ng and muscle -stren gtheni ng exerci se. This patien t has osteop orosis (recen t zoledr onic acid therap y). Contin ued treatm ent, or altern ate therap eutic option s, should be consid ered. Follow -up DXA: Consid er repeat ing this study in one to two years or as clinic ally miguel hinojosa. Indica tion(s ): Caucas nolan, premat ure menopa use, low body weight Clinic al Histor y: osteop orosis , height loss, fragil ity fractu res Techni segundo Qualit y: The techni segundo qualit y of the study was good and no region s of intere st were remove d. Result s: Lumbar Spine The BMD measur ed in the L1-L4 region is 0.980 g/cm2. T-scor e = -1.7. Femora l Neck The BMD measur ed at the left femora l neck is 0.622 g/cm2. T-scor e = -3.0. Total Hip The BMD measur ed at the total left proxim al femur is 0.604 g/cm2. T-scor e = -3.2. 1/3 Radius The BMD measur ed at the left one-th ird radius is 0.701 g/cm2. T-scor e = -2.0. Interv al Change : This examin ation is compar ed to the techni debbie garduno r prior study from 2. In the interi m, there has been a signif icant decrea se of 0.053 g/cm2, or 5.1 %, at the lumbar spine. At this facili ty, the least signif icant change in BMD with 95% confid ence is 0.028 g/cm2 at the L1-L4 spine and 0.038 g/cm2 at the total hip. Fractu re Risk: FRAX not calcul ated due to recent zoledr onic acid therap y. This scan was perfor med using the [employer] Primo 10 densit ometer at [facility] , [address] Read by: Lilia Cardenas on, MS, BILL PEDDLER-BC , CCD Nalini martin Physic nolan: Samia marin [email or web address] [facility] (Imaging) [address], [place], [address], 12/29/2022 09:19:29 Result Notes None recorded. Problems Name Problem SNOMED Code Status Onset Date Resolution Date Notes Provider Name and Address Organization Details Recorded Time Multiple nodules of lung 066162114 Active Christiane Greenwood RN null, [facility] 6 13:38:05 Hypertensiv e disorder 52585200 Active Christiane Greenwood RN null, [facility] 6 13:38:05 Osteoporosi s 07042677 Active Christiane Greenwood RN null, [facility] 6 13:38:05 Rhinitis 73105765 Active allergic Christiane Greenwood RN null, [facility] 6 13:38:05 Decrease in height 86784783 Active 2021 Shirley Gill LPN null, [facility] 2 08:05:52 Problem Notes None recorded. Procedures Surgical History Date Name Laterality Status Provider Name and Address Organization Details Recorded Time 2 IV Therapy completed Melanie Dennis RN [facility] 09/30/2021 10:04:35 6 IV Therapy completed Christiane Greenwood RN [facility] 06/04/2016 10:54:23 6 IV Therapy completed Christiane Greenwood RN [facility] 05/27/2016 11:15:16 3 Paring/cutg b9 hyprker les 1 completed Corazon Miranda MD [address] [place] [address], [phone], [facility] 01/03/2016 15:37:27 1 Unlisted procedure breast completed Corazon Miranda MD [address] [place] [address], [phone], [facility] 01/03/2016 15:36:50 Imaging Results Imaging Date Name Status LastModified by Organiz ation Details LastModified Time 11/12/2021 bone density completed [facility] (Imaging) [address], [place], [address], 11/17/2021 14:28:27 11/17/2022 bone density completed [email or web address] ([facility]) [address] [place], [address], 12/29/2022 09:19:29 Procedure Notes None recorded. Medical Equipment None Reported. Allergies Allergen ID Allergen Name Allergen Category Reaction Reaction Severity Criticality Documentation Date Start Date Code Code System Note Provider Name and Address Organization Details Recorded Time [id number] amoxicill in medicatio n rash Not available Not available 01/03/2016 723 RxNorm Christiane Greenwood RN null, [facility] 6 15:20:09 [id number] Levaquin medicatio n rash Not available Not available 01/03/2016 56535 2 RxNorm Christiane Greenwood RN [facility], [facility] 6 15:20:09 Medications Name Sig Start Date Stop Date Status Note LastModified by Organization Details LastModified Time thymol 4% in 70% isopropyl APPLY UNDER NAILS @ 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 KEEP NAILS SHORT. [id number] 04/14/20 19 COMPOUND ED NON STERILE active Not Available Not Available No t Available albuterol sulfate 0.63 mg/3 mL solution for nebulizat ion TAKE 3 ML BY NEBULIZA TION EVERY 6 HOURS NEEDED FOR WHEEZING OR SHORTNES S OF BREATH/D YSPNEA. active Not Available Not Available No t Available acetamino phen 325 mg tablet 650mg by mouth with IV reclast once then 650mg by mouth every 4h as needed for pain 01/23 completed Not Available Not Available Not Available prednison e 10 mg tablet Take by oral route. 04/15 completed tapering 01/03/2016 Not Available Not Available Not Available Estring 2 mg (7.5 mcg/24 hour) vaginal ring INSERT ONE RING EVERY 90 DAYS DIRECTED 04/08 completed Not Available Not Available Not Available doxycycli ne hyclate 100 mg capsule 01/23 completed Not Available Not Available Not Available cetirizin e 10 mg tablet Take 1 tablet every day by oral route. active Not Available Not Available No t Available cefpodoxi me 200 mg tablet TAKE 1 TABLET BY MOUTH 2 TIMES A DAY FOR 10 DAYS. 12/03 completed Not Available Not Available Not Available fluoroura cil 5 % topical cream active Not Available Not Available Not Available prednison e 5 mg tablet TAKE 1/2 TABLET BY MOUTH DAILY 12/03 completed Not Available Not Available Not Available amlodipin e 2.5 mg tablet TAKE 1 TABLET BY MOUTH EVERY DAY 01/23 completed Not Available Not Available Not Available amlodipin e 5 mg tablet TAKE 1 TABLET BY MOUTH EVERY DAY 01/03 completed Not Available Not Available Not Available triamcino lone acetonide 0.1 % topical cream APPLY TWICE DAILY TO AFFECTED AREAS OF ECZEMA ON ARMS, LEGS, AND BACK FOR UP TO 2 WEEKS PER MONTH active Not Available Not Available No t Available triamcino lone acetonide 0.025 % topical cream APPLY TO AFFECTED AREA 3 TIMES A DAY 01/23 completed Not Available Not Available Not Available methotrex ate sodium 2.5 mg tablet TAKE 5 TABLETS (12.5 MG TOTAL) BY MOUTH ONCE A WEEK FOR 13 DOSES. active Not Available Not Available No t Available prednison e 1 mg tablet TAKE 1 TABLET BY MOUTH EVERY DAY active Not Available Not Available No t Available doxycycli ne monohydra te 100 mg capsule TAKE 1 CAPSULE BY MOUTH TWICE A DAY FOR 10 DAYS 12/03 completed Not Available Not Available Not Available oseltamiv ir 75 mg capsule TAKE 1 CAPSULE BY MOUTH TWICE A DAY FOR 5 DAYS 12/03 completed Not Available Not Available Not Available folic acid 1 mg tablet TAKE 1 TABLET BY MOUTH EVERY DAY active Not Available Not Available No t Available mupirocin 2 % topical ointment APPLY TO AFFECTED AREA TWICE A DAY active Not Available Not Available No t Available albuterol sulfate HFA 90 mcg/actua tion aerosol inhaler INHALE 1 PUFF INTO THE LUNGS EVERY 4 HOURS NEEDED. active Not Available Not Available No t Available ipratropi um bromide 42 mcg (0.06 %) nasal spray USE 2 SPRAYS BY NASAL ROUTE 3 (THREE) TIMES A DAY active Not Available Not Available No t Available fluocinon aiyana 0.05 % topical cream APPLY TO THE AFFECTED AREA(S) BY TOPICAL ROUTE 2 TIMES PER DAY active Not Available Not Available No t Available fluticaso ne propionat e 50 mcg/actua tion nasal spray,gigi pension SPRAY 1 SPRAY BY NASAL ROUTE EVERY DAY active Not Available Not Available No t Available ipratropi um bromide 21 mcg (0.03 %) nasal spray 04/08 completed Not Available Not Available Not Available fluticaso ne propionat e 110 mcg/actua tion HFA aerosol inhaler Inhale 1 puff twice a day by inhalati on route. 01/23 completed Not Available Not Available Not Available Calcium-5 00 500 mg (as calcium carbonate 1,250 mg) tablet 500mg by mouth once daily for a month after taking reclast 2015 active pt takes this daily 01-23-21 Not Available Not Available Not Available acetylcys teine 600 mg capsule TAKE 1 CAPSULE (600 MG TOTAL) BY MOUTH 2 (TWO) TIMES A DAY. NAC, OR N ACETYLCY GALARZA IS APPROPRI ATE active Not Available Not Available No t Available zoledroni c acid 5 mg/100 mL in mannitol 5 %-water intraveno us piggybck INJECT 5MG BY IV OVER 30 MINUTES WITH NORMAL SALINE SOLUTION 0.5L BOLUS active Worsenin g BMD - appt 12/03 to discuss Not Available Not Available Not Available Yuvafem 10 mcg vaginal tablet INSERT 1 TABLET VAGINALL Y 2 TIMES A WEEK. active Not Available Not Available No t Available Paxlovid 300 mg (150 mg x 2)-100 mg tablets in a dose pack active Not Available Not Available Not Available Vitals Date Recorded Body weight Body mass index (BMI) Body height Heart rate Systolic blood pressure Diastolic blood pressure Provider Name and Address Organization Details Last Updated DateTime 1 40885.4 8 g 17.4 kg/m2 165.1 cm 64 /min 100 mm[Hg] 60 mm[Hg] Shirley Gill LPN [facility] 1 10:13:43 Date Recorded Body height Body mass index (BMI) Body weight Heart rate Systolic blood pressure Diastolic blood pressure Provider Name and Address Organization Details Last Updated DateTime 2 167.64 cm 15.3 kg/m2 02499.2 8 g 66 /min 104 mm[Hg] 70 mm[Hg] Shirley Gill LPN [facility] 2 10:22:28 Date Recorded Body weight Body mass index (BMI) Body height Heart rate Systolic blood pressure Diastolic blood pressure Provider Name and Address Organization Details Last Updated DateTime 3 90139.1 5 g 15.7 kg/m2 166.37 cm 48 /min 126 mm[Hg] 70 mm[Hg] Shirley Gill [employer] [facility] 3 10:36:25 Social History Question Answer Notes LastModified by Organizat ion Details LastModified Time Tobacco Smoking Status Former Smoker Quit 1976, Christiane Greenwood RN null, [facility] 01/03/2016 15:17:31 What Is Your Level Of Alcohol Consumption? Occasional 2 Drinks Per Week peyton Information not available 01/03/2016 Which Illicit Or Recreational Drugs Have You Used? Denies [email or web address] Information not available 01/03/2016 What Was The Date Of Your Most Recent Tobacco Screening? 04/08/2017 Information not available 02/22/2019 Sex: Unknown Functional Status None recorded. Mental Status None recorded. Family History Relationship Description Onset Age of this Age Resolved Age Notes LastModified by Organization Details LastModified Time Mother Coronary arterioscler osis Killed by brothe r with BH issues [email or web address] Not available 12/31/2015 13:38:05 Father Malignant neoplasm of lung 62 [email or web address] Not available 2015 13:38:05 Father Hypertensive disorder [email or web address] Not available 2015 13:38:05 Brother Mental disorder [email or web address] Not available 2015 13:38:05 Brother Hypertensive disorder [email or web address] Not available 2015 13:38:05 Maternal Grandmother Heart disease [email or web address] Not available 2015 13:38:05 Paternal Grandfather Depressive disorder [email or web address] Not available 2015 15:33:38 Paternal Uncle Depressive disorder [email or web address] Not available 2015 15:33:38 Notes:no osteoporosis Medical History Condition Response Allergic Rhinitis Y RESPIRATORY Y Hypertension Y Osteoporosis Y Gynecological HistoryNo gynecological history recorded. Obstetrics History GPAL:G 0 P 0 0 0 0 Immunizations Vaccine Type Date Status Note Provider Nam e and Address Organization Details Recorded Time SARS-COV-2 (COVID-19) vaccine, UNSPECIFIED 1 completed DAYRON Kauffman [facility] 01/23/2021 09:59:01 SARS-COV-2 (COVID-19) vaccine, UNSPECIFIED 1 completed DAYRON Kauffman [facility] 01/23/2021 09:59:22 COVID-19, mRNA, LNP-S, PF, 30 mcg/0.3 mL dose 1 completed DAYRON Kauffman, [facility] 08/28/2021 10:19:17 Influenza, split virus, quadrivalent, preservative 1 completed DAYRON Kauffman [facility] 08/28/2021 10:19:56 Past Encounters Encounter ID Performer Location Encounter Start Date Encounter Closed Date Diagnosis/Indication Diagnosis SNOMED-CT Code Diagnosis ICD10 Code Diagnosis Note [id number] Corazon Miranda MD [facility], [address] [address] 01/03/2016 14:51:18 01/03/2016 16:21:19 Osteoporosis 50208249 M81.0 Decrease in height 30519 005 R29.319 [id number] Corazon Miranda MD [facility], [address] [address] 04/15/2016 08:12:13 04/15/2016 09:04:34 Osteoporosis 46957422 M81.0 -blood calcium and kidney check in 3weeks -reclast by IV in 4weeks, appointmen t with endocrine treatment nurse -may take acetaminop hen prior to reclast to prevent muscle aches or fever, which sometimes occurs -increase dairy to 3 to 4 servings daily -continue marcello chi Decrease in height 82849 005 R29.965 [id number] Corazon Miranda MD [facility], [address] [address] 05/27/2016 09:58:37 05/27/2016 11:25:16 Osteoporosis 22694887 M81.0 -blood calcium and kidney check in 3weeks -reclast by IV in 4weeks, appointmen t with endocrine treatment nurse -may take acetaminop hen prior to reclast to prevent muscle aches or fever, which sometimes occurs -increase dairy to 3 to 4 servings daily -continue marcello chi [id number] Corazon Miranda MD [facility], [address] [address] 06/04/2016 10:32:22 06/04/2016 12:54:46 Osteoporosis 82942072 M81.0 -blood calcium and kidney check in 3weeks -reclast by IV in 4weeks, appointmen t with endocrine treatment nurse -may take acetaminop hen prior to reclast to prevent muscle aches or fever, which sometimes occurs -increase dairy to 3 to 4 servings daily -continue marcello chi [id number] Corazon Miranda MD [facility], [address] [address] 04/08/2017 10:16:33 04/08/2017 11:10:19 Osteoporosis 54574944 M81.0 -repeat bone density -no reclast for now -dairy to 3 to 4 servings daily -continue marcello chi Decrease in height 00525 005 R29.452 [id number] Corazon Miranda MD [facility], [address] [address] 01/04/2020 07:31:44 01/04/2020 16:48:31 Osteoporosis 10034045 M81.0 -dairy to 3 to 4 servings daily -continue marcello chi -walking Decrease in height 11525 005 R29.130 [id number] Corazon Miranda MD [facility], [address] [address] 01/23/2021 09:48:04 01/23/2021 10:45:28 Osteoporosis 53778447 M81.0 -reclast was tolerated well in the past 06/17 -repeat bone density 08/23, consider reclast thereafter if worsening bone density -dairy to 3 to 4 servings daily -consider marcello chi or other balance exercises -walking Decrease in height 51124 005 R29.064 [id number] Corazon Miranda MD [facility], [address] [address] 08/28/2021 09:49:11 08/28/2021 19:05:40 Osteoporosis 74161038 M81.0 -reclast was tolerated well in the past 06/17 -repeat bone density as soon as possible (will send to [facility] if they can do sooner), consider reclast thereafter if worsening bone density -dairy to 3 to 4 servings daily -consider marcello chi or other balance exercises -walking -calcium at least 500mg by mouth once daily after reclast (zoledroni c acid)-acet aminophen 650mg by mouth once prior to reclast then as needed every 6h thereafter -vitamin d 1000units by mouth once daily -follow up 6mo or as needed -consider DXA 1y after reclast to see how this is working Decrease in height 26806 005 R29.890 Gastroesop hageal reflux disease 402166146 K21.9 Dysphagia 07951693 R13.1 0 [id number] Corzaon Miranda MD [facility], [address] [address] 09/30/2021 08:29:56 09/30/2021 10:06:30 Osteoporosis 90978097 M81.0 -reclast was tolerated well in the past 06/17 -repeat bone density as soon as possible (will send to [facility] if they can do sooner), consider reclast thereafter if worsening bone density -dairy to 3 to 4 servings daily -consider marcello chi or other balance exercises -walking -calcium at least 500mg by mouth once daily after reclast (zoledroni c acid)-acet aminophen 650mg by mouth once prior to reclast then as needed every 6h thereafter -vitamin d 1000units by mouth once daily -follow up 6mo or as needed -consider DXA 1y after reclast to see how this is working [id number] Corazon Miranda MD [facility], [address] [address] 12/03/2022 10:16:54 12/04/2022 17:16:34 Osteoporosis 58649533 M81.0 -reclast did not help your bone density -prolia or tymlos might help, you declines these injections and will return as needed Decrease in height 07745 005 R29.890 Gastroesop hageal reflux disease 323308530 K21.9 Dysphagia 61171314 R13.1 0 Impairment of balance 38 9714029 R26.89 -marcello chi Health Concerns Section Related Observation LastModified by Organization Detai ls LastModified Time None Recorded Concern Status LastModified by Organization Details LastModified Time None Recorded Advance Directives Directive None Recorded Payers Encounter Date Sequence Insurance Name Policy Number Policy Bridges Covered Member ID Bridges Member ID Guarantor Name 01/04/2020 1 [facility] MEDICARE PREFERRED (MEDICARE REPLACEMENT HMO) ANKIT Huber [id number] Tomasa Huber 01/23/2021 1 [employer] - MEDICARE PREFERRED (MEDICARE REPLACEMENT HMO) HAMPS Tomasa R Mayo [id number] Tomasa R Mayo 08/28/2021 1 [facility] - MEDICARE PREFERRED (MEDICARE REPLACEMENT HMO) HAMPS Tomasa R Mayo [id number] Tomasa R Mayo 09/30/2021 1 [facility] - MEDICARE PREFERRED (MEDICARE REPLACEMENT HMO) HAMPS Tomasa R Mayo [id number] Tomasa R Mayo 12/03/2022 1 [facility] - MEDICARE PREFERRED (MEDICARE REPLACEMENT HMO) HAMPS Tomasa R Mayo [id number] Tomasa R Mayo Notes Date Note Type Note Provider Name and Address Organization Details Recorded Time 01/04/2020 text/html 74yo woman, with a history of GERD, improved by tums, hypertension, bronchiectasis, underweight, early menopause, perhaps age 39 years, on estrogen and progesterone until age 59 years, and osteoporosis kindly referred by Dr. Garrett for osteoporosis, status post reclast once 06/04/16. Patient agreed to this visit via phone or secure telehealth platform due to the COVID -19 pandemic. Patient understands this is a scheduled visit and the usual procedures with regard to billing and confidentiality apply. Patient was notified that the provider location is home Patient location: home During the visit the patient? s medical history and medical record were reviewed. The patient was notified to call our office for worsening or urgent symptoms. had not seen for a while, consult about do another program with reclast, decided to stop this last time 04/18 she had been anxious, other issues at the time, so only one dose of reclast no fractures she had a fall and hurt wrist , recovered quickly she is active she continues marcello chi, , this activity has been very helpful, keeps her limber and walks regulalry no lift weights + stationary biking she is a little stopped, moves shoulder a little back height stable last few times no kidney stones Corazon Miranda MD [address] [place] [address], [phone], [facility] 01/04/2020 10:06:04 01/23/2021 text/html 74yo woman, with a history of GERD, improved by tums, hypertension, bronchiectasis, underweight, early menopause, perhaps age 39 years, on estrogen and progesterone until age 59 years, and osteoporosis kindly referred by Dr. Garrett for osteoporosis, status post reclast once 06/04/16. I recommend a repeat she has trouble getting enough meal roducts with calcium she has milk with lunch some days not 4 servings dairy she learns that low fat milk is better for tolerated 2016 reclast one dose, no problem or issues with reclast no fractures kidney stones she is shorter, now 5'6.5 she declined reclast in the past due to wanting to be attentive to her , she asks about side effects Corazon Miranda MD [address] [place] [address], [phone], [facility] 01/23/2021 10:48:50 08/28/2021 text/html Follow-Up: osteoporosisFollow-Up : decrease in heightISSUES:has bone density scheduled in september @ [facility] 75yo woman, with a history of dysphagia with solid food, vasculitis (granulomatosis with polyangiitis), on prednisone since 07/22, GERD, improved by tums, hypertension, bronchiectasis, underweight, early menopause, perhaps age 39 years, on estrogen and progesterone until age 59 years, and osteoporosis kindly referred by Dr. 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, once she fell with and had bruise reclast was tolerated well in the past 06/17, she has worried about reclast affecting other things, since deteriorates, not going to get better no kidney stones + heartburn a little eat too fast then cough Corazon iMranda MD [address] [place] [address], [phone], [facility] 08/28/2021 10:56:53 12/03/2022 text/html Follow-Up: osteoporosisissues;la st bone density 11-17-22last reclast infusion 2-5-43mgixpvqzmbctik is recommending stoppping prednisone andjan had the fluhad covid before thathas a pulse of 40lu821/70 bp she staggers, has trouble walking, no falls fractures kidney stones Corazon Miranda MD [address] [place] [address], [phone], [facility] 12/03/2022 11:00:07 OBGyn Episode No OBEpisode recorded.
--- OUTSIDE RECORDS SUMMARY | 2024-12-06 14:52 | XMS_ITS ---
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 Name Role Phone FernandesRaymond Primary Care Provider Vandana Gill [phone] REASON FOR VISIT Infectious disease 12/06/24 Encounters Encounter Location Date Provider Diagnosis [address] [address] 11/24/2024 Vandana Ramirez Plan Of Treatment Next Appt Details Provider Name:Vandana dykes, 12/15/2024 12:00:00 PM, [address] [place] [address], [phone], Provider Name:Vandana dykes, 12/26/2024 03:45:00 PM, [address] [place] [address], [phone], Progress Notes * Tomasa JE[birth year]DOB:[birth year] (78 yo F)Acc No.[id number]:11/24/2024 Patient:?Tomasa JEWELL :1945???Age:78 Y???Sex:Female Address:[facility] [place] [address] * * Date:?
--- OUTSIDE RECORDS SUMMARY | 2024-12-06 14:52 | XMS_ITS | Patient Health Record ---
Author Organization [facility] Address [address] [place] [address] Care Team Providers Care Distribution Estimator Name Role Phone Raymond Fernandes Primary Care Provider Unavailabl e Vandana Ramirez Unavailable [phone] Allergies Allergen (clinical drug ingredient) Drug/Non Drug Allergy documented on EMR Reaction Allergy Type Onset Date Status Biaxin rash in sun Drug Allergy Activ e erythromycin Erythromycin rash in sun Drug Allergy Active azithromycin Azithromycin rash in sun Drug Allergy Active cephalexin Cephalexin dizzy, light headed Drug Allergy Active Penicillin rash in sun Drug Allergy Acti ve Reason For Referral Diagnosis 1 Pain in unspecified foot (M79.673) Referring Provider First Name Todd Referring Provider Last Name Dena [facility] Referred Provider Vandana Ramirez Referred Address [address] [facility],[place], [place],[address],[place] Referred Provider Specialty Podiatry Referral Priority Routine Diagnosis 1 Atherosclerosis of n ative artery of both lower extremities, with unspecified presence of clinical manifestation (I70.203) Diagnosis 2 Skin ulcer of toe of left foot, limited to breakdown of skin (L97.521) Diagnosis 3 Skin ulcer of toe of right foot, limited to breakdown of skin (L97.511) Diagnosis 4 Plantar wart (B07.0) Diagnosis 5 Other hammer toe(s) (acquired), right foot (M20.41) Diagnosis 6 Other hammer toe(s) (acquired), left foot (M20.42) Diagnosis 7 Ischemic ulcer of ri ght foot with fat layer exposed (L97.512) Diagnosis 8 Arthritis of joint o f lesser toe, right (M19.071) Diagnosis 9 Pain in right toe(s) (M79.674) Referring Provider First Name Raymond Referring Provider Last Name Fernandes Referred [facility] Referred Provider Vandana Ramirez Referred Address [address],[place], [place],[address],[place] Referred Provider Specialty Podiatry Referral Priority Routine Medications Medication SIG (Take, Route, Frequency, Duration) Notes Start Date End Date Status Clotrimazole-Betamethason e 1-0.05 % External for 30 Days Active Triamcinolone Acetonide Active Cephalexin 500 MG 1 capsule Orally Twice a day for 7 days Not-Taking Folic Acid Active Fluticasone Propionate Active Calcium + D 600 Active Albuterol Sulfate 0.63 MG/3ML as directed Inhalation 2x a day Active Acetylcysteine 600 MG 1 capsule Orally Once a day Active Cipro 750 MG 1 tablet Orally every 12 hrs for 5 days 09/19/2024 Not-Taking Systane Active Multivitamin Active Methotrexate 5x 2.5mg Active Tylenol 325 MG 1 tablet as needed Orally every 6 hrs Active Social History Tobacco Use: Social History Observation Description Date Details (start date - stop date) Never Smoker NA - NA Tobacco use other than smoking: Question Answer Notes Are you an other tobacco user? No Tobacco Control (Standard) Question Answer Notes Tobacco use: Nonsmoker Additional Findings: Tobacco non-user Current no nsmoker AUDIT-C (Standard) Question Answer Notes Did you have a drink containing alcohol in the p ast year? No Points 0 Interpretation Negative Problems Problem Type SNOMED Code ICD Code Onset Dates Problem Status W/U Status Risk Notes Problem Acquired hammer toe of right foot (8277410025703925 ) Other hammer toe(s) (acquired), right foot (M20.41) Active confirmed Problem Acquired hammer toe of left foot (3635853248203408 ) Other hammer toe(s) (acquired), left foot (M20.42) Active confirmed Problem Plantar wart (61940383) Plantar wart (B07.0) Active confirmed Problem Acquired hallux valgus (68398245) Hallux valgus (acquired), right foot (M20.11) Active confirmed Problem Bilateral atherosclerosis of arteries of lower limbs (disorder) (2724213525221967 7) Atherosclerosis of [place] artery of both lower extremities, with unspecified presence of clinical manifestation (I70.203) Active confirmed Q7(A), Q8(2B), Q9(1B,2C) Problem Ulcer of toe of right foot (disorder) (0879713146012601 1) Skin ulcer of toe of right foot, limited to breakdown of skin (L97.511) Active confirmed Response to treatment Problem Localized, primary osteoarthritis of the ankle and/or foot (704975532) Arthritis of joint of lesser toe, right (M19.071) Active confirmed Problem Ulcer of toe of left foot (disorder) (9028646108313172 2) Skin ulcer of toe of left foot, limited to breakdown of skin (L97.521) Active confirmed Response to treatment Problem Ischemic ulcer o f right foot with fat layer exposed (L97.512) Active confirmed Response to treatment Worse Unchanged Vital Signs Heart Rate 53 /min 10/06/2024 Blood pressure diastolic 90 mm Hg 11/24/2024 Height 5ft 5.5in in 11/24/2024 Blood pressure systolic 150 mm Hg 11/24/2024 Weight 106 lbs 11/24/2024 BMI 17.37 kg/m2 11/24/2024 Encounters Encounter Location Date Provider Diagnosis [address] [address] 05/30/2024 Vandana Perica Plantar wart B07.0 ; Other hammer toe(s) (acquired), left foot M20.42 ; Atherosclerosis of [place] artery of both lower extremities, with unspecified presence of clinical manifestation I70.203 ; Tinea unguium B35.1 ; Pain in right toe(s) M79.674 ; Pain in left toe(s) M79.675 ; Skin ulcer of toe of right foot, limited to breakdown of skin L97.511 ; Right foot pain M79.671 and Other hammer toe(s) (acquired), right foot M20.[address] [facility] [address] 08/04/2024 Vandana Perica Plantar wart B07.0 ; Other hammer toe(s) (acquired), left foot M20.42 ; Atherosclerosis of [place] artery of both lower extremities, with unspecified presence of clinical manifestation I70.203 ; Tinea unguium B35.1 ; Pain in right toe(s) M79.674 ; Pain in left toe(s) M79.675 ; Right foot pain M79.671 and Other hammer toe(s) (acquired), right foot M20.[address] [address] 09/13/2024 Vandana Perica Cellulitis of toe of right foot L03.031 ; Ischemic ulcer of right foot with fat layer exposed L97.512 ; Pain in right toe(s) M79.674 ; Other hammer toe(s) (acquired), right foot M20.41 ; Arthritis of joint of lesser toe, right M19.071 and Subluxation of metatarsophalangeal joint of toe, initial encounter S93.149A [address] [address] 09/19/2024 Vandana Perica Cellulitis of toe of right foot L03.031 ; Ischemic ulcer of right foot with fat layer exposed L97.512 ; Pain in right toe(s) M79.674 ; Other hammer toe(s) (acquired), right foot M20.41 ; Arthritis of joint of lesser toe, right M19.071 and Subluxation of metatarsophalangeal joint of toe, initial encounter S93.149A [address] [address] 09/26/2024 Vandana Perica Cellulitis of toe of right foot L03.031 ; Ischemic ulcer of right foot with fat layer exposed L97.512 ; Pain in right toe(s) M79.674 ; Other hammer toe(s) (acquired), right foot M20.41 ; Arthritis of joint of lesser toe, right M19.071 and Subluxation of metatarsophalangeal joint of toe, initial encounter S93.149A [address] [address] 10/06/2024 Vandana Perica Other hammer toe(s) (acquired), left foot M20.42 ; Other hammer toe(s) (acquired), right foot M20.41 ; Atherosclerosis of [place] artery of both lower extremities, with unspecified presence of clinical manifestation I70.203 ; Tinea unguium B35.1 ; Pain in right toe(s) M79.674 ; Pain in left toe(s) M79.675 ; Ischemic ulcer of right foot with fat layer exposed L97.512 ; Arthritis of joint of lesser toe, right M19.071 and Subluxation of metatarsophalangeal joint of toe, initial encounter S93.149A [facility] [address] [address] 11/24/2024 Vandana Ramirez Other hammer toe(s) (acquired), right foot M20.41 ; Other hammer toe(s) (acquired), left foot M20.42 ; Atherosclerosis of [place] artery of both lower extremities, with unspecified presence of clinical manifestation I70.203 ; Ischemic ulcer of right foot with fat layer exposed L97.512 ; Arthritis of joint of lesser toe, right M19.071 ; Subluxation of metatarsophalangeal joint of toe, initial encounter S93.149A and Hallux valgus (acquired), right foot M20.11 [facility] [address] [address] 11/24/2024 Vandana Perica [facility] [address] [address] 05/30/2024 Vandana Perica [facility] [address] [address] 09/08/2024 Vandana Perica [facility] [address] [address] 09/13/2024 Vandana Perica [facility] [address] [address] 09/21/2024 Vandana Perica [facility] [address] [address] 10/06/2024 Vandana Perica [facility] [address] [address] 10/09/2024 Vandana Perica [facility] [address] [address] 11/09/2024 [facility] [address] [place] [address] 11/22/2024 Vandana [facility] [address] [place] [address] 11/24/2024 Vandana Ramirez Assessments Encounter Date Diagnosis (ICD Code) Assessment Notes Treatment Notes Treatment Clinical Notes Section Notes 05/30/2024 Other hammer toe(s) (acquired), left foot (ICD-10 - M20.42) 05/30/2024 Plantar wart (ICD-10 - B07.0) 08/04/2024 Other hammer toe(s) (acquired), left foot (ICD-10 - M20.42) 08/04/2024 Plantar wart (ICD-10 - B07.0) 09/13/2024 Cellulitis of toe of right foot (ICD-10 - L03.031) 09/13/2024 Ischemic ulcer of ri ght foot with fat layer exposed (ICD-10 - L97.512) Response to treatment Worse Unchanged Patient Educated with: WOUND CARE INSTRUCTIONS. pdf (WOUND CARE INSTRUCTIONS. pdf) 09/19/2024 Cellulitis of toe of right foot (ICD-10 - L03.031) 09/19/2024 Ischemic ulcer of ri ght foot with fat layer exposed (ICD-10 - L97.512) Patient Educated with: WOUND CARE INSTRUCTIONS. pdf (WOUND CARE INSTRUCTIONS. pdf) 09/26/2024 Cellulitis of toe of right foot (ICD-10 - L03.031) 10/06/2024 Other hammer toe(s) (acquired), right foot (ICD-10 - M20.41) 10/06/2024 Other hammer toe(s) (acquired), left foot (ICD-10 - M20.42) 11/24/2024 Other hammer toe(s) (acquired), right foot (ICD-10 - M20.41) 11/24/2024 Other hammer toe(s) (acquired), left foot (ICD-10 - M20.42) 11/24/2024 Atherosclerosis of [place] artery of both lower extremities, with unspecified presence of clinical manifestation (ICD-10 - I70.203) Q7(A), Q8(2B), Q9(1B,2C) 09/26/2024 Ischemic ulcer of ri ght foot with fat layer exposed (ICD-10 - L97.512) Patient Educated with: WOUND CARE INSTRUCTIONS. pdf (WOUND CARE INSTRUCTIONS. pdf) 10/06/2024 Atherosclerosis of [place] artery of both lower extremities, with unspecified presence of clinical manifestation (ICD-10 - I70.203) Q7(A), Q8(2B), Q9(1B,2C) 09/19/2024 Pain in right toe(s) (ICD-10 - M79.674) 08/04/2024 Atherosclerosis of [place] artery of both lower extremities, with unspecified presence of clinical manifestation (ICD-10 - I70.203) Q7(A), Q8(2B), Q9(1B,2C) 09/13/2024 Pain in right toe(s) (ICD-10 - M79.674) 05/30/2024 Atherosclerosis of [place] artery of both lower extremities, with unspecified presence of clinical manifestation (ICD-10 - I70.203) Q7(A), Q8(2B), Q9(1B,2C) 05/30/2024 Tinea unguium (ICD-1 0 - B35.1) 09/13/2024 Other hammer toe(s) (acquired), right foot (ICD-10 - M20.41) 08/04/2024 Tinea unguium (ICD-1 0 - B35.1) 09/19/2024 Other hammer toe(s) (acquired), right foot (ICD-10 - M20.41) 10/06/2024 Tinea unguium (ICD-1 0 - B35.1) 09/26/2024 Pain in right toe(s) (ICD-10 - M79.674) 11/24/2024 Ischemic ulcer of ri ght foot with fat layer exposed (ICD-10 - L97.512) 11/24/2024 Arthritis of joint o f lesser toe, right (ICD-10 - M19.071) 10/06/2024 Pain in right toe(s) (ICD-10 - M79.674) 09/19/2024 Arthritis of joint o f lesser toe, right (ICD-10 - M19.071) 09/26/2024 Other hammer toe(s) (acquired), right foot (ICD-10 - M20.41) 09/13/2024 Arthritis of joint o f lesser toe, right (ICD-10 - M19.071) 08/04/2024 Pain in right toe(s) (ICD-10 - M79.674) 05/30/2024 Pain in right toe(s) (ICD-10 - M79.674) 05/30/2024 Pain in left toe(s) (ICD-10 - M79.675) 08/04/2024 Pain in left toe(s) (ICD-10 - M79.675) 09/13/2024 Subluxation of metatarsophalangeal joint of toe, initial encounter (ICD-10 - S93.149A) 09/19/2024 Subluxation of metatarsophalangeal joint of toe, initial encounter (ICD-10 - S93.149A) 10/06/2024 Pain in left toe(s) (ICD-10 - M79.675) 09/26/2024 Arthritis of joint o f lesser toe, right (ICD-10 - M19.071) 11/24/2024 Subluxation of metatarsophalangeal joint of toe, initial encounter (ICD-10 - S93.149A) 11/24/2024 Hallux valgus (acquired), right foot (ICD-10 - M20.11) 10/06/2024 Ischemic ulcer of ri ght foot with fat layer exposed (ICD-10 - L97.512) Patient Educated with: WOUND CARE INSTRUCTIONS. pdf (WOUND CARE INSTRUCTIONS. pdf) 09/26/2024 Subluxation of metatarsophalangeal joint of toe, initial encounter (ICD-10 - S93.149A) 08/04/2024 Right foot pain (ICD -10 - M79.671) 05/30/2024 Skin ulcer of toe of right foot, limited to breakdown of skin (ICD-10 - L97.511) Response to treatment 08/04/2024 Other hammer toe(s) (acquired), right foot (ICD-10 - M20.41) 05/30/2024 Right foot pain (ICD -10 - M79.671) 10/06/2024 Arthritis of joint o f lesser toe, right (ICD-10 - M19.071) 10/06/2024 Subluxation of metatarsophalangeal joint of toe, initial encounter (ICD-10 - S93.149A) 05/30/2024 Other hammer toe(s) (acquired), right foot (ICD-10 - M20.41) 05/30/2024 Other Plan Of Treatment Pending Test Test Name Order Date X ray : Foot, right 3V 09/13/2024 Next Appt Details Provider Name:Vandana dykes, 12/15/2024 12:00:00 PM, [address] [place] [address], [phone], Provider Name:Vandana dykes, 12/26/2024 03:45:00 PM, [address] [place] [address], [phone], Insurance Providers Payer Name Payer Address Payer Phone Subscriber Number Group Number Insured Name Patient Relationship to Insured Coverage Start Date Coverage End Date [employer] Preferred [address] [place] [address] [id number] Tomasa Huber Self - patient is the insured Medical (General) History Medical History History ICD Code Arthritis asthma Back,Hip,and Knee pain Cancer Headaches/Migraines High Blood Pressure Lung disease Osteoporosis raynauds disease sinusitis Measles covid-19 Pulmonary Nodules JAMES Granulomatous [place] Hospitalization History Reason Date(Month/Year) Laly Harding- Fall hit head 06/30/24
--- OUTSIDE RECORDS SUMMARY | 2024-12-06 14:52 | XMS_ITS ---
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 Name Role Phone FernandesEros martinRaymond Primary Care Provider Vandana Gill Unavailable [phone] Allergies Allergen (clinical drug ingredient) Drug/Non Drug Allergy documented on EMR Reaction Allergy Type Onset Date Status Biaxin rash in sun Drug Allergy Activ e erythromycin Erythromycin rash in sun Drug Allergy Active azithromycin Azithromycin rash in sun Drug Allergy Active cephalexin Cephalexin dizzy, light headed Drug Allergy Active Penicillin rash in sun Drug Allergy Acti ve REASON FOR VISIT Skin problem(s), Toe Pain Medications Medication SIG (Take, Route, Frequency, Duration) Notes Start Date End Date Status Clotrimazole-Betamethason e 1-0.05 % External for 30 Days Active Cephalexin 500 MG 1 capsule Orally Twice a day for 7 days Not-Taking Tylenol 325 MG 1 tablet as needed Orally every 6 hrs Active Albuterol Sulfate 0.63 MG/3ML as directed Inhalation 2x a day Active Cipro 750 MG 1 tablet Orally every 12 hrs for 5 days 09/19/2024 Not-Taking Folic Acid Active Fluticasone Propionate Active Calcium + D 600 Active Multivitamin Active Methotrexate 5x 2.5mg Active Triamcinolone Acetonide Active Acetylcysteine 600 MG 1 capsule Orally Once a day Active Systane Active Social History Tobacco Use: Social History Observation Description Date Details (start date - stop date) Never Smoker NA - NA Tobacco use other than smoking: Question Answer Notes Are you an other tobacco user? No Tobacco Control (Standard) Question Answer Notes Tobacco use: Nonsmoker Additional Findings: Tobacco non-user Current no nsmoker Problems Problem Type SNOMED Code ICD Code Onset Dates Problem Status W/U Status Risk Notes Problem Acquired hallux valgus (28021701) Hallux valgus (acquired), right foot (M20.11) Active confirmed Vital Signs Height 5ft 5.5in in 11/24/2024 Weight 106 lbs 11/24/2024 BMI 17.37 kg/m2 11/24/2024 Blood pressure systolic 150 mm Hg 11/25/19 Blood pressure diastolic 90 mm Hg 025 Encounters Encounter Location Date Provider Diagnosis [facility] [place] [address] [place] [address] 11/24/2024 Vandana Ramirez Other hammer toe(s) (acquired), right foot M20.41 ; Other hammer toe(s) (acquired), left foot M20.42 ; Atherosclerosis of osage artery of both lower extremities, with unspecified presence of clinical manifestation I70.203 ; Ischemic ulcer of right foot with fat layer exposed L97.512 ; Arthritis of joint of lesser toe, right M19.071 ; Subluxation of metatarsophalangeal joint of toe, initial encounter S93.149A and Hallux valgus (acquired), right foot M20.11 Assessments Encounter Date Diagnosis (ICD Code) Assessment Notes Treatment Notes Treatment Clinical Notes Section Notes 11/24/2024 Other hammer toe(s) (acquired), right foot (ICD-10 - M20.41) 11/24/2024 Other hammer toe(s) (acquired), left foot (ICD-10 - M20.42) 11/24/2024 Atherosclerosis of osage artery of both lower extremities, with unspecified presence of clinical manifestation (ICD-10 - I70.203) Q7(A), Q8(2B), Q9(1B,2C) 11/24/2024 Ischemic ulcer of ri ght foot with fat layer exposed (ICD-10 - L97.512) 11/24/2024 Arthritis of joint o f lesser toe, right (ICD-10 - M19.071) 11/24/2024 Subluxation of metatarsophalangeal joint of toe, initial encounter (ICD-10 - S93.149A) 11/24/2024 Hallux valgus (acquired), right foot (ICD-10 - M20.11) Plan Of Treatment Next Appt Details Follow Up: as scheduled, Zeynep son: Provider Name:Vandana Dykes Kim dykes, 12/15/2024 12:00:00 PM, [address] [place] [address], [phone], Provider Name:Vandana Dykes Kim dykes, 12/26/2024 03:45:00 PM, [address] [place] [address], [phone], Procedure Notes * Category Sub-Category Detail Notes Debride skin and subQ Open wound The patien t was instructed to change dressings according to orders or PRN saturation, leaks, ISCHEMIC: Physician of record performed open wound selective debridement of devitalized necrotic/nonviable soft tissue, fibrin, exudate, epidermis, dermis, thru skin and subcutaneous fat tissue, first 20 sq cm or less, using sharp dissection with sterile 15 blade, and/or tissue nippers. ANESTHESIA was DEFERRED, Pt tolerate to pain,, Sterile antibiotic dressing applied. Hemostasis was controlled through direct pressure. Post debridement measurements: 10 mm x 7 mm x 3mm. Character of the wound post debriement is stable (48523)The patient was instructed on importance of proper wound care consisting of pressure reduction, maintainance of moist wound environment, and regular debridement of devitilized tissue, The patient is to cleanse the wound with warm soapy water/peroxide/saline or betadine BID based on product availability, The patient is to apply Medihoney to the wound and cover with a DSD,The patient was instructed to monitor and report any signs or symptoms of infection or any untoward reactions, The patient is to cont the local wound care as directed, Progress Notes * Tomasa JEWELLDOB:[birth year] (78 yo F)Acc No.[id number]:11/24/2024 Progress Notes Patient:?Tomasa JEWELL Provider:?Vandana Ramirez DPM :1945???Age:78 Y???Sex:Female D ate:11/24/2024 Address:[address] [place] [address], [id number] Pcp:Raymond Fernandes Subjective: * Chief Complaints: * ???Skin problem(s)Toe Pain * HPI: ???Skin problems:?Nature:?redness, swelling , tender, Open sore,, odor.?Location:?right 2nd toe?.?Duration:?several months.?Onset/Cause:?gradual.?Course:?unresolved, , worse.?Aggravated by:?any pressure,?standing, walking, shoe gear, .?Treatments:?Doxy BID from PCP, daily dressing changes with abx oint and bandaid, lambs wool, wound culture, betadine, Keflex, Cipro, current treatment by [facility] wound care consisting of silver alginate and VNA.?Misc:?Denies N, V, F, C.?Toe pain:?Nature:?tenderness.?Location:??2nd?B/L feet.?Duration:?several years.?Course:?unchanged , worse.?Aggravated by:?shoes, any pressure?.?Treatments:?rest/alter normal daily activity, change in shoes, lambs wool.? * ROS:?General/Constitutional:?Nausea?denies.?Vomiting?denies.?Hunger Thirst?denies.?Loss appetite?denies.?Chills?denies.?Fatigue?admits.?Fever?denies.?Night Sweats?denies.?Unexplained weight loss?denies.?Unexplained weight gain?denies.?HEENTM:?Dentures?denies.?Dizziness?denies.?Glasses/contacts?admits.?Retinopathy?de nies.?Blurred/double vision?denies.?TMJ?denies.?Discharge/drainage?denies.?Implants?denies.?Sore throat?denies.?Dental implants?denies.?Hard of hearing ?admits.?Difficulty chewing/swallowing/speaking?denies.?Nose bleeds?denies.?Sore mouth?denies.?Respiratory:?On Oxygen?denies.?Pneumonia/pleurisy?denies.?Bronchitis?admits.?Emphysema?denies.?C oughing?admits.?Cough blood?denies.?Shortness of breath?denies.?Wheezing?denies.?Cardiovascular:?Pacemaker?denies.?MVP?denies.?WPW?denies.?CHF?denies.?Heart attack?denies.?Septal defect?denies.?Rapid beat?denies.?Chest pain ?denies.?Atrial Fib.?denies.?Murmur/Palpitations?denies.?Gastrointestinal:?Hemorrhoids?denies.?Stomach/Abdominal pain?denies.?Dark blood stool?denies.?Irritable bowel ?denies.?Constipation?denies.?Diarrhea?denies.?Hematology:?Swelling?denies.?Clots?denies.?Varicose Veins?denies.?Bruising?admits.?Bleeding problem?denies.?Genitourinary:?Blood urine?denies.?Frequent/Painfu/urination/bladder control?denies.?Kidney stones?denies.?Infection (UTI)?denies.?Nephropathy?denies.?sex trans dis (STD)?denies.?Prostate?denies.?Musculoskeletal:?Hammertoes?admits.?Bunions?admits.?Back Pain?denies.?Muscle Cramps/ Resting?admits.?Muscle cramps / walking?denies.?Generalized aches and pains?admits.?Weakness?denies.?Integ.:?[place]?denies.?Scars?admits.?Corns/calluses?denies.?Ingrown nails?denies.?Painful nails?denies.?Open Sores?denies.?Rashes?denies.?Neurologic:?Difficulty sleeping?denies.?Brain disorder?denies.?Numbness?denies.?Balance trouble?admits.?Confusion?denies.?Fainting/blackouts?denies.?Tingling?denies.?Tr emors?denies.? * Medical History:? * Surgical History:?Denies Pas t Surgical History * Hospitalization/Major Diagno stic Procedure:?Ruffin Mehdi- Fall hit head 06/30/24 * Family History:?Mother: dece ased, foot problems, diagnosed with Other specified conditions influencing health status, Family history of arthritis.?Father: , cancer, diagnosed with Other malignant neoplasm of unspecified site, Unspecified essential hypertension.?Siblings: breathing problems, diagnosed with Unspecified heart disease.?Children: Son, diagnosed with Family history of arthritis.? * Social History:?Tobacco Use:?Tobacco use other than smoking?Are you an other tobacco user??No ?Tobacco Control (Standard)?Tobacco use:?Nonsmoker ?Additional Findings: Tobacco non-user?Current nonsmoker ???Miscellaneous:?Caffeine: no. ?Children: yes, 1. ?Exercise: yes, walking. ?Marital status: . 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 * Medications:?TakingTriamcino lone Acetonide Acetylcysteine 600 MG Capsule 1 capsule Orally Once a day Systane Multivitamin Methotrexate , Notes to Pharmacist: 5x 2.5mgFolic Acid Fluticasone Propionate Calcium + D , Notes to Pharmacist: 600Albuterol Sulfate 0.63 MG/3ML Nebulization Solution as directed Inhalation , Notes to Pharmacist: 2x a dayTylenol 325 MG Tablet 1 tablet as needed Orally every 6 hrs Clotrimazole-Betamethasone 1-0.05 % Cream External Taking Triamcinolone Acetonide Taking Acetylcysteine 600 MG Capsule 1 capsule Orally Once a day Taking Systane Taking Multivitamin Taking Methotrexate , Notes to Pharmacist: 5x 2.5mgTaking Folic Acid Taking Fluticasone Propionate Taking Calcium + D , Notes to Pharmacist: 600Taking Albuterol Sulfate 0.63 MG/3ML Nebulization Solution as directed Inhalation , Notes to Pharmacist: 2x a dayTaking Tylenol 325 MG Tablet 1 tablet as needed Orally every 6 hrs Taking Clotrimazole-Betamethasone 1-0.05 % Cream External Not-Taking/PRNCephalexin 500 MG Capsule 1 capsule Orally Twice a day Cipro 750 MG Tablet 1 tablet Orally every 12 hrs Medication List reviewed and reconciled with the patientNot-Taking/PRN Cephalexin 500 MG Capsule 1 capsule Orally Twice a day Not-Taking/PRN Cipro 750 MG Tablet 1 tablet Orally every 12 hrs Medication List reviewed and reconciled with the patient * Allergies:?Penicillin: rash in sun - AllergyErythromycin: rash in sun - AllergyBiaxin: rash in sun - AllergyAzithromycin: rash in sun - AllergyCephalexin: dizzy, light headed - Allergyyes[Allergies Verified] Objective: * Vitals:?Ht: 5ft 5.5in, Wt: 1 06, BMI: 17.37, Shoe size: 8.5-9, BP: 150/90 mm Hg, Ht-cm: 166.37 cm, Wt-k.08 kg. * Examination: ???Vascular: ?DP PULSES (B):?2/4, B/L?.?PT PULSES (B):? 0/4, B/L.?CAPILLARY FILL TIME:? delayed, all digits, B/L.?TROPHIC CONDITION-TEXTURE/ELASTICITY/TURGOR/HAIR GROWTH (B):? decreased, fragile, thin, shiny skin, with sparse to absent hair growth, B/L?.?TEMPERTURE GRADIENT (C):? decreased, cool to cool, proximal to distal, B/L?.?PIGMENTATION:?pale, B/L.?EDEMA (C):?1/4Foot, Right, .?Dermatologic: ?SKIN FINDINGS:?Skin exam reveals Keratotic lesion(s) located at , Medial, T2, PIPJ.?ULCER:?LOCATION, medial PIPJ T6 RIGHT, SIZE, 7 mm X 7 mm X 3mm, BASE, fibro-granular, RIM, hyperkeratotic UNDERMINING, mild, TRACKING, Sub Q with Fat layer exposed, Does not probe to bone, DRAINAGE, serosanguineous, increased, NECROTIC TISSUE, loosely-adherent, yellow slough, MALODOR, present, CALOR, absent, ERYTHEMA, mild.?Orthopedic: ?MUSCLE STRENGTH:?5/5 all groups in a symmetrical fashion, B/L , 5/5 all groups in a symmetrical fashion, B/L.?BUNION:?Medially prominent 1st MPJLateral tracking 1st MPJ non reducible, B/L, .?DIGITAL DEFORMITIES:?Digital contracture, PIPJ, 2-5 B/L, non-reducible with WB or to push-up test, no over, nor underlapping , evidence of shoe producing skin irritation, Reveals pain/swelling/redness/enlargement of PIPJ, T6, .?FOOTWEAR EVALUATION:? shoe gear properties exacerbate patients foot/toe deformity.?Neurological: ?SENSORY:?Neurological exam reveals intact sensorium, pain sensation normal, vibration sensation intact, pinprick sensation is normal in the lower extremities, Pt denies, anesthesia, burning, paresthesia, tingling, B/L , Neurological exam reveals intact sensorium, pain sensation normal, vibration sensation intact, pinprick sensation is normal in the lower extremities, Pt denies, anesthesia, burning, paresthesia, tingling, B/L.?General Examination: ?GENERAL APPEARANCE:?Reveals a pleasant, alert, well nourished, well- developed, well hydrated individual, who demonstrates proper attention to hygiene/body habitus, and is in no acute distress, Pt serves as own historian for office visit todayDenies fever, chills, malaise, lymphadenopathy, .?ORIENTED:?person, place, and time.? Assessment: * Assessment: 1.?Other hammer toe(s) (acqu ired), right foot - M20.41 (Primary)???Specify :Chronic problem, Worse (4)???2.?Other hammer toe(s) (acquired), left foot - M20.42???Specify :Chronic problem, Stable (1=3,2=4)???3.?Atherosclerosis of osage artery of both lower extremities, with unspecified presence of clinical manifestation - I70.203???Notes :Q7(A), Q8(2B), Q9(1B,2C)???4.?Ischemic ulcer of right foot with fat layer exposed - L97.512???Specify :Failing to change as expected???5.?Arthritis of joint of lesser toe, right - M19.071???6.?Subluxation of metatarsophalangeal joint of toe, initial encounter - S93.149A???7.?Hallux valgus (acquired), right foot - M20.11??? Plan: * Treatment: * Procedures:?Debride skin and subQ:?Open wound?The patient was instructed to change dressings according to orders or PRN saturation, leaks, ISCHEMIC: Physician of record performed open wound selective debridement of devitalized necrotic/nonviable soft tissue, fibrin, exudate, epidermis, dermis, thru skin and subcutaneous fat tissue, first 20 sq cm or less, using sharp dissection with sterile 15 blade, and/or tissue nippers. ANESTHESIA was DEFERRED, Pt tolerate to pain,, Sterile antibiotic dressing applied. Hemostasis was controlled through direct pressure. Post debridement measurements: 10 mm x 7 mm x 3mm. Character of the wound post debriement is stable (50986)The patient was instructed on importance of proper wound care consisting of pressure reduction, maintainance of moist wound environment, and regular debridement of devitilized tissue, The patient is to cleanse the wound with warm soapy water/peroxide/saline or betadine BID based on product availability, The patient is to apply Medihoney? to the wound and cover with a DSD,The patient was instructed to monitor and report any signs or symptoms of infection or any untoward reactions, The patient is to cont the local wound care as directed,.? * Procedure Codes:?05786 DEBRI DE SKIN/TISSUE, Modifiers: XS * Preventive Medicine:? ??Counseling:?Discussion:?-14: Office or other outpatient visit for the evaluation and management of an established patient, which required a medically appropriate history and/or examination and MODERATE level of DECISION MAKING for: 1 OR MORE CHRONIC PROBLEM(S) THATS WORSENING, 2 STABLE CHRONIC PROBLEMS, A NEWLY DIAGNOSED PROBLEM WITH UNCERTAIN PROGNOSIS, AN ACUTE COMPLICATED INJURY WITH MULTIPLE TREATMENT OPTIONS, OR AN ACUTE PROBLEM WITH ACCOMPANYING SYSTEMIC SYMPTOMS, THAT POSE(S) A MODERATE RISK OF MORBIDITY. THIS CONDITION MAY ALSO INCLUDE RX DRUG MANAGEMENT, OR A DECISON FOR MINOR SURGERY. The visit on the day of the encounter encompassed interpreting the data and educating the patient as to the nature of their condition, treatment options available according to their individual PMH, meds, allergies, and overall health/living conditions, as well as any potential risks or complications that may occur from a failure to adhere to, and participate in, the recommended course of therapy. The discussion included a complete verbal, and/or written explanation of the examination results, any x-rays taken, the proposed diagnosis, and outline of the treatment plan. A schedule for future care needs was also explained. The patient verbalized an understanding of the instructions at this time and agreed to be an active participant in their treatment. If the patient should think of any questions or concerns after the visit, I have encouraged the patient to call the office.?Consult:?The patient was counseled on the diagnosis, treatment options, and the need for a, Infectious Disease Consult due to pedal risk of limb/life, recommend wound care consult infectious disease regarding making the referral.?Digital Surgery:?Digital surgery was discussed with the patient, including the risks of surgery(below), vs not having surgery (persistent pain, deformity, risk for skin ulceration/infection, loss of toe), the potential surg complications, the anesthesia, and the usual post-op course. No guarentees were given. We discussed the potential procedure complications including, but not limited to: pain, swelling, bleeding, scarring, numbness, infection, delayed/non healing, floppy/unstable/shorthened toe, recurrence, failure of the procedure, overcorrection leading to plantarflexed/downward positioned toe, recurrence, need for further surgery, as well as the possibility for loss of the toe itself. We discussed the use of local anesthesia, and the usual post-op course for healing. No guarentees were given. The patient verbally indicated a full understanding of the above conversation, and any other of their questions were answered to their satisfaction. Alternatives to the procedure were also discussed, including conservative care. I also discussed the usual post-operative course and gave no guarantees regarding outcome, discussed hammertoe surgery to reduce pressure on 2nd toe to help in healing of ulcer, will discuss in detail at her next appt and weigh risks/benefits.?Digital Treatment:?HT- I explained to the patient the possible etiologies of Hammertoes, including genetics/foot type/shoegear/activity level/exercise routine and the risks/benefits of all the different treatment options for their pain including: No treatment at all, Rest, Ice, New/supportive/wider/deeper Shoe gear, Digital Padding/Strapping/Taping/Bracing/Gel protective sleeves, Foot/Ankle AFO Bracing, Stretching exercises, Deep Tissue Massage, Arch support/shoe inserts with splay metatarsal padding, and Custom orthoses. I insisted that any digital devices be removed daily and not worn overnight for safety. The patient is to carefully examine the toes daily for any skin irritation while using any splinting or padding device. The advantages and disadvantages of each option were discussed and the patients questions re: shoe gear, padding, custom vs prefabricated inserts, activity level, and consistency in home treatment regimens for optimal success were answered to their verbally confirmed satisfaction.?Ulcer:?A detailed plan of care was reviewed with the patient. We emphasized the fact that the patient takes on an active participating role in the treatment process and emphasized to them that they are an included, valued, and important member of the wound healing team in order to reach an expedient successful outcome. The patient agreed to follow their medically recommended diet while increasing their protein intake if safely able to do so, maintain proper bodily hydration, abide by weight-bearing restrictions at all times, quit all current smoking habits if any, and diligently follow any/all dressing change instructions. It was clearly made known to the patient that if they fail to do their part, they will likely extend their course of treatment as well as possibly increase their risk of adverse events including amputation. The patient was instructed on importance of proper wound care consisting of pressure reduction, and proper maintenance of a moist wound environment. The patient is to cleanse the wound with warm soapy water/peroxide/saline, or betadine BID based on product availability. The patient is to apply Silver alginat per wound care and VNA to the wound and cover with a DSD as directed. The patient was instructed to change dressings according to orders, or PRN saturation, leaks. The patient was instructed to monitor and report any signs or symptoms of infection or any untoward reactions. Precautions Taken: Offloading/Pressure reduction via rest/ limited activity to essential to daily life only, cane/ crutches/ walker/ knee scooter/ wheelchair, shoe modification, accommodative padding, sharp debridement, and take/apply medication as directed. THE SHORT-TERM GOALS of wound care include, prevent hospitalization, debridement to remove devitalized tissue, minimize risk for soft tissue or bone infection, initiate and promote the wound healing process, and prevent further complication such as loss of limb or life were discussed/reviewed. THE LONG-TERM GOALS of wound care include, complete wound closure if possible, facilitate patient comfort, prevent recurrence, and return the patient to their pre-ulcerative state of activity and lifestyle if possible, Debridement frequency as indicated.? * Follow Up:?as scheduled * Images: * Sign off status: Completed true * Provider:?Vandana Ramirez DPM Date:? Generated for Wilmar cardenas/Mendy/Carlitos on:?12/06/2024 02:52 PM EDT History and Physical Notes * HPI (History of Present Illness) Category Sub-Category Detail Notes Category Not es Toe pain Nature: tenderness Location: 2nd B/L feet Duration: several years Course: unchanged , worse Aggravated by: shoes, any pressure Treatments: rest/alter normal da yomaira activity, change in shoes, lambs wool Skin problems Nature: redness , swelling , tender , Open sore,, odor Location: right 2nd toe Duration: several months Onset/Cause: gradual Course: unresolved, , worse Aggravated by: any pressure, standi ng, walking, shoe gear, Treatments: Doxy BID from PCP, fr[place] aily dressing changes with abx oint and bandaid, lambs wool, wound culture, betadine, Keflex, Cipro, current treatment by [facility] wound care consisting of silver alginate and VNA Misc: Denies N, V, F, C Examination Category Sub-Category Detail Notes Category Not es Neurological SENSORY: Neurological exa m reveals intact sensorium, pain sensation normal, vibration sensation intact, pinprick sensation is normal in the lower extremities, Pt denies, anesthesia, burning, paresthesia, tingling, B/L , Neurological exam reveals intact sensorium, pain sensation normal, vibration sensation intact, pinprick sensation is normal in the lower extremities, Pt denies, anesthesia, burning, paresthesia, tingling, B/L Dermatologic SKIN FINDINGS: Skin exam reveal s Keratotic lesion(s) located at , Medial, T2, PIPJ ULCER: LOCATION, medial PIP J T6 RIGHT, SIZE, 7 mm X 7 mm X 3mm, BASE, fibro- granular, RIM, hyperkeratotic UNDERMINING, mild, TRACKING, Sub Q with Fat layer exposed, Does not probe to bone, DRAINAGE, serosanguineous, increased, NECROTIC TISSUE, loosely-adherent, yellow slough, MALODOR, present, CALOR, absent, ERYTHEMA, mild Orthopedic BUNION: Medially promine nt 1st MPJLateral tracking 1st MPJ non reducible, B/L, FOOTWEAR EVALUATION: shoe gear propertie s exacerbate patients foot/toe deformity DIGITAL DEFORMITIES: Digital contracture , PIPJ, 2-5 B/L, non-reducible with WB or to push-up test, no over, nor underlapping , evidence of shoe producing skin irritation, Reveals pain/swelling/redness/enlargement of PIPJ, T6, MUSCLE STRENGTH: 5/5 all groups in a symmetrical fashion, B/L , 5/5 all groups in a symmetrical fashion, B/L General Examination GENERAL APPEARANCE: Reveals a pleasant, alert, well nourished, well-developed, well hydrated individual, who demonstrates proper attention to hygiene/body habitus, and is in no acute distress, Pt serves as own historian for office visit todayDenies fever, chills, malaise, lymphadenopathy, ORIENTED: person, place, and t micha Vascular DP PULSES (B): 2/4, B/L PT PULSES (B): 0/4, B/L CAPILLARY FILL TIME: delayed, all digits , B/L TEMPERTURE GRADIENT (C): decreased, cool to cool, proximal to distal, B/L TROPHIC CONDITION-TEXTURE/ELASTICITY/TURGOR/HAIR GROWTH (B): decreased, fragile, thin, shiny skin, wi th sparse to absent hair growth, B/L EDEMA (C): 1/4Foot, Right, PIGMENTATION: pale, B/L
== END 2024-12-06 14:35 | disposition home or self-care (01) ==
LOC: HO.HID 13:33
PROVIDERS: PCP Family Medicine; Visit Provider Internal Medicine
DX: L97.509 Non-pressure chronic ulcer of other part of unspecified foot with unspecified severity (principal)
CPT/HCPCS: 99203

== ENCOUNTER → 2024-12-06 13:33 | Outpatient (BNVA) | payer MEDICARE, SELFPAY | PROVIDERS: PCP Family Medicine; Visit Provider Internal Medicine | DX: L97.519 Non-pressure chronic ulcer of other part of right foot with unspecified severity (principal) | CPT/HCPCS: 99202 ==

== ENCOUNTER 2024-12-22 16:54 | Outpatient (REF) | payer MEDICARE, SELFPAY | END 2024-12-22 16:55 | disposition home or self-care (01) | LOC: HO.LNP 16:54 | PROVIDERS: Visit Provider Podiatrist | DX: L97.512 Non-pressure chronic ulcer of other part of right foot with fat layer exposed (principal) | CPT/HCPCS: 87070; 87077; 87186; 87205 ==

== ENCOUNTER 2025-04-17 10:35 | Outpatient (RCR) | payer MEDICARE, SELFPAY | END 2025-04-17 16:25 | disposition home or self-care (01) | LOC: HO.WCC 10:35 | PROVIDERS: PCP Family Medicine; Visit Provider Surgery Surgical Oncology | DX: M21.271 Flexion deformity, right ankle and toes (principal); L84 Corns and callosities; I73.00 Raynaud's syndrome without gangrene; I10 Essential (primary) hypertension; B35.3 Tinea pedis; Z09 Encounter for follow-up examination after completed treatment for conditions other than malignant neoplasm; Z87.2 Personal history of diseases of the skin and subcutaneous tissue | CPT/HCPCS: 11042; 11106; 88304; 88305; 88312; 97597; 99212; 99213 ==